=== PATIENT | male | born 1975 | race African-American/Black ===

== ENCOUNTER 2018-03-06 16:19 | Inpatient (IN) | payer OTHER ==
[2018-03-06] MEDS ORDERED: NITROGLYCERIN OINT 1 INCH/GM PACKET TOPICAL STA (16:33)
[2018-03-06] MEDS ORDERED: ASPIRIN 81 MG PO STA (16:33)
--- NOTE | 2018-03-06 16:38 | ED ---
General Adult HPI - General Chief complaint: Chest Pain Stated complaint: chest pain and rt foot pain Time Seen by Provider: 03/06/18 16:24 Source: patient, RN notes reviewed Mode of arrival: EMS Limitations: no limitations - History of Present Illness Initial comments: Patient is a pleasant 42-year-old male presenting to the emergency department with chest discomfort and right foot pain. Patient has had some tightness in his chest since around 11:00. This has been mild and persistent. Patient is slightly nauseated. Patient has been sweaty at nighttime. Patient does feel somewhat short of breath. Patient does have a history of similar symptoms previously however previous problems have been worse. Patient also has noticed a sore on his right foot. Patient states this was a blister however the blister has fallen off and revealed an ulcer. Discomfort is moderate. Patient does admit to having poorly controlled diabetes at times. - Related Data Home Medications Medication Instructions Recorded Confirmed Atorvastatin [Lipitor] 10 mg PO HS 09/24/17 03/06/18 Carvedilol [Coreg*] 12.5 mg PO BID 09/24/17 03/06/18 Ergocalciferol [Vitamin D2 50,000 unit PO Q14D 09/24/17 03/06/18 (DRISDOL)] Furosemide [Lasix] 40 mg PO DAILY 09/24/17 03/06/18 Gabapentin [Neurontin] 100 mg PO TID PRN 09/24/17 03/06/18 Insulin Detemir [Levemir Flextouch] 20 unit SQ HS 09/24/17 03/06/18 Isosorbide Dinitrate [Isordil] 20 mg PO BID 09/24/17 03/06/18 Sacubitril/Valsartan [Entresto 49 1 tab PO BID 09/24/17 03/06/18 mg-51 mg Tablet] Insulin Aspart [NovoLOG 15 unit SQ AC-TID 03/06/18 03/06/18 (formulary)] Ranitidine HCl [Zantac] 300 mg PO DAILY 03/06/18 03/06/18 Allergies Allergy/AdvReac Type Severity Reaction Status Date / Time aspirin AdvReac DIZZINESS Verified 03/06/18 17:16 Review of Systems ROS Statement: Those systems with pertinent positive or pertinent negative responses have been documented in the HPI. ROS Other: All systems not noted in ROS Statement are negative. Constitutional: Denies: fever Eyes: Denies: eye pain ENT: Denies: ear pain Respiratory: Denies: cough Cardiovascular: Reports: chest pain Endocrine: Denies: fatigue Gastrointestinal: Denies: abdominal pain Genitourinary: Denies: dysuria Musculoskeletal: Denies: back pain Skin: Reports: rash (Right foot) Neurological: Denies: weakness Past Medical History Past Medical History: Heart Failure, Diabetes Mellitus, Hyperlipidemia, Hypertension, Renal Disease Additional Past Medical History / Comment(s): neuropathy History of Any Multi-Drug Resistant Organisms: None Reported Past Surgical History: Heart Catheterization, Heart Catheterization With Stent Additional Past Surgical History / Comment(s): heart cath with stent in 2015 in [place] Past Anesthesia/Blood Transfusion Reactions: No Reported Reaction Date of Last Stent Placement:: 2014 Past Psychological History: No Psychological Hx Reported Smoking Status: Former smoker Past Alcohol Use History: Occasional Past Drug Use History: None Reported - Past Family History Mother Family Medical History: Cancer, Coronary Artery Disease (CAD), Diabetes Mellitus , Hypertension, Renal Disease Additional Family Medical History / Comment(s): breast CA General Exam Limitations: no limitations General appearance: alert, in no apparent distress Head exam: Present: atraumatic Eye exam: Present: normal appearance, PERRL ENT exam: Present: normal oropharynx Neck exam: Present: normal inspection Respiratory exam: Present: normal lung sounds bilaterally. Absent: chest wall tenderness Cardiovascular Exam: Present: regular rate, normal rhythm Expanded Peripheral pulses: 2+: Radial (R), Radial (L), Dorsalis Pedis (R), Dorsalis Pedis (L) GI/Abdominal exam: Present: soft. Absent: tenderness Extremities exam: Present: pedal edema, other (Right distal lateral foot ulcer approximate 4 x 5 cm, stage II.). Absent: calf tenderness Neurological exam: Present: alert Psychiatric exam: Present: normal affect, normal mood Skin exam: Present: other (Right foot ulcer) Course Vital Signs 03/06/18 16:21 Temperature 97.8 F Pulse Rate 78 Respiratory 18 Rate Blood Pressure 140/79 O2 Sat by Pulse 99 Oximetry EKG Findings - EKG Comments: EKG Findings:: Normal sinus rhythm 76. DE 164. QRS 106. QT 418. QTC 470. Left axis. LVH. T-wave inversion leads V2 through V6. Medical Decision Making - Medical Decision Making Patient reevaluated and resting comfortably in bed. Patient does have elevated troponin however also has elevated creatinine. Patient will be treated for non- ST elevation IN. Heparin will be started and cardiology will be consult. Patient will also need nephrology consult. Case was discussed in detail with practitioner Lorna ramos, who will admit for Dr. Hamilton, who admits for Dr. Serafin Martel. - Lab Data Result diagrams: 03/06/18 16:36 03/06/18 16:36 Lab Results 03/06/18 03/06/18 03/06/18 Range/Units 16:36 16:36 16:36 WBC 7.6 (3.8-10.6) k/uL RBC 3.16 L (4.30-5.90) m/uL Hgb 8.5 L (13.0-17.5) gm/dL Hct 27.1 L (39.0-53.0) % MCV 85.9 (80.0-100.0) fL MCH 26.8 (25.0-35.0) pg MCHC 31.2 (31.0-37.0) g/dL RDW 14.5 (11.5-15.5) % Plt Count 257 (150-450) k/uL Neutrophils % 73 % Lymphocytes % 16 % Monocytes % 6 % Eosinophils % 3 % Basophils % 0 % Neutrophils # 5.5 (1.3-7.7) k/uL Lymphocytes # 1.2 (1.0-4.8) k/uL Monocytes # 0.5 (0-1.0) k/uL Eosinophils # 0.2 (0-0.7) k/uL Basophils # 0.0 (0-0.2) k/uL Hypochromasia Moderate PT (9.0-12.0) sec INR (<1.2) APTT (22.0-30.0) sec Sodium 143 (137-145) mmol/L Potassium 4.0 (3.5-5.1) mmol/L Chloride 104 (98-107) mmol/L Carbon Dioxide 27 (22-30) mmol/L Anion Gap 12 mmol/L BUN 46 H (9-20) mg/dL Creatinine 5.03 H* (0.66-1.25) mg/dL Est GFR (CKD-EPI)AfAm 15 (>60 ml/min/1.73 sqM) Est GFR (CKD-EPI)NonAf 13 (>60 ml/min/1.73 sqM) Glucose 51 L (74-99) mg/dL Calcium 7.9 L (8.4-10.2) mg/dL Magnesium 1.7 (1.6-2.3) mg/dL Total Bilirubin 0.5 (0.2-1.3) mg/dL AST 21 (17-59) U/L ALT 24 (21-72) U/L Alkaline Phosphatase 89 (38-126) U/L Total Creatine Kinase 748 H (55-170) U/L CK-MB (CK-2) 7.2 H* (0.0-2.4) ng/mL CK-MB (CK-2) Rel Index 1.0 Troponin I 0.156 H* (0.000-0.034) ng/mL NT-Pro-B Natriuret Pep pg/mL Total Protein 6.6 (6.3-8.2) g/dL Albumin 3.0 L (3.5-5.0) g/dL 03/06/18 03/06/18 Range/Units 16:36 16:36 WBC (3.8-10.6) k/uL RBC (4.30-5.90) m/uL Hgb (13.0-17.5) gm/dL Hct (39.0-53.0) % MCV (80.0-100.0) fL MCH (25.0-35.0) pg MCHC (31.0-37.0) g/dL RDW (11.5-15.5) % Plt Count (150-450) k/uL Neutrophils % % Lymphocytes % % Monocytes % % Eosinophils % % Basophils % % Neutrophils # (1.3-7.7) k/uL Lymphocytes # (1.0-4.8) k/uL Monocytes # (0-1.0) k/uL Eosinophils # (0-0.7) k/uL Basophils # (0-0.2) k/uL Hypochromasia PT 10.4 (9.0-12.0) sec INR 1.1 (<1.2) APTT 23.7 (22.0-30.0) sec Sodium (137-145) mmol/L Potassium (3.5-5.1) mmol/L Chloride (98-107) mmol/L Carbon Dioxide (22-30) mmol/L Anion Gap mmol/L BUN (9-20) mg/dL Creatinine (0.66-1.25) mg/dL Est GFR (CKD-EPI)AfAm (>60 ml/min/1.73 sqM) Est GFR (CKD-EPI)NonAf (>60 ml/min/1.73 sqM) Glucose (74-99) mg/dL Calcium (8.4-10.2) mg/dL Magnesium (1.6-2.3) mg/dL Total Bilirubin (0.2-1.3) mg/dL AST (17-59) U/L ALT (21-72) U/L Alkaline Phosphatase (38-126) U/L Total Creatine Kinase (55-170) U/L CK-MB (CK-2) (0.0-2.4) ng/mL CK-MB (CK-2) Rel Index Troponin I (0.000-0.034) ng/mL NT-Pro-B Natriuret Pep 9710 pg/mL Total Protein (6.3-8.2) g/dL Albumin (3.5-5.0) g/dL - Radiology Data Radiology results: image reviewed (Chest x-ray does show cardiomegaly with some central vascular congestion.) Critical Care Time Critical Care Time: Yes Total Critical Care Time: 32 Disposition Clinical Impression: NSTEMI (non-ST elevated myocardial infarction), CKD (chronic kidney disease), CHF (congestive heart failure) Disposition: ADMITTED IP TO THIS HOSP Condition: Serious Is patient prescribed a controlled substance at d/c from ED?: No Referrals: Judith Rico MD [Primary Care Provider] - 1-2 days Decision Time: 18:17
[2018-03-06 16:57] LABS: Basophils % (A) 0 %; Eosinophils # (A) 0.2 k/uL (0-0.7); Eosinophils % (A) 3 %; HCT 27.1 % (39.0-53.0); HGB 8.5 gm/dL (13.0-17.5); Hypochromasia Moderate; Lymphocytes # (A) 1.2 k/uL (1.0-4.8); Lymphocytes % (A) 16 %; MCH 26.8 pg (25.0-35.0); MCHC 31.2 g/dL (31.0-37.0); MCV 85.9 fL (80.0-100.0); Mean Platelet Volume 7.3; Monocytes # (A) 0.5 k/uL (0-1.0); Monocytes % (A) 6 %; Neutrophils # (A) 5.5 k/uL (1.3-7.7); Neutrophils % (A) 73 %; Platelet Count 257 k/uL (150-450); RBC 3.16 m/uL (4.30-5.90); RDW 14.5 % (11.5-15.5); WBC 7.6 k/uL (3.8-10.6)
[2018-03-06 17:02] LABS: INR 1.1 (<1.2); Partial Thromboplastin Time 23.7 sec (22.0-30.0); Prothrombin Time 10.4 sec (9.0-12.0)
[2018-03-06 17:04] LABS: Calcium 7.9 mg/dL (8.4-10.2); Magnesium 1.7 mg/dL (1.6-2.3); Total Bilirubin 0.5 mg/dL (0.2-1.3); Total Protein 6.6 g/dL (6.3-8.2)
--- NOTE | 2018-03-06 17:05 | XR ---
EXAMINATION TYPE: XR chest 2V DATE OF EXAM: 03/06/2018 COMPARISON: Chest x-ray September 28, 2017 HISTORY: Chest pain, history of CHF. TECHNIQUE: Frontal and lateral views of the chest are obtained. FINDINGS: Exam is suboptimal secondary to patient's large body habitus. Low lung volumes and cardiom egaly with perhaps mild central vascular congestion is redemonstrated. There is no suspicious new fo daisy airspace opacity, pleural effusion, or pneumothorax seen bilaterally. The osseous structures are intact. IMPRESSION: Correlate for CHF exacerbation as there is cardiomegaly with possible central vascular c ongestion redemonstrated.
--- NOTE | 2018-03-06 17:06 | XR ---
EXAMINATION TYPE: XR foot complete RT DATE OF EXAM: 03/06/2018 CLINICAL HISTORY: Nonhealing wound right fifth digit. TECHNIQUE: Frontal, lateral, and oblique images of the right foot are obtained. COMPARISON: None FINDINGS: There is no acute fracture/dislocation evident in the right foot. The joint spaces in the right foot appear within normal limits. Some flexion in distal third through fifth toes is present. No suspicious cortical destruction or periosteal reaction is seen. Seen best on lateral view there is moderate soft tissue swelling along dorsal surface at level of metatarsals. IMPRESSION: Soft tissue swelling without convincing radiographic evidence for acute osteomyelitis. If Clinical concern persists further investigation three-phase bone scan or MRI may be warranted.
[2018-03-06 17:33] LABS: Creatine Kinase MB 7.2 ng/mL (0.0-2.4); Troponin I 0.156 ng/mL (0.000-0.034)
[2018-03-06] MEDS ORDERED: NITROGLYCERIN SL TABS 0.4 MG TAB SUBLINGUAL PRN (18:18)
[2018-03-06] MEDS ORDERED: HEPARIN SODIUM,PORCINE 5,000 UNIT/ML 1 ML VIAL IV ONE (18:18)
[2018-03-06] MEDS ORDERED: FUROSEMIDE 10 MG/ML 4 ML VIAL IV SCH (18:45)
[2018-03-06] MEDS: HEPARIN SODIUM,PORCINE/D5W PMX 25,000 UNIT in DEXTROSE/WATER 1 500ML.BAG IV SCH (18:58)
[2018-03-06 19:59] LABS: Glucose,Whole Blood 184 mg/dL (75-99)
[2018-03-06] MEDS: ATORVASTATIN 10 MG TAB PO SCH (20:04)
[2018-03-06] MEDS: CARVEDILOL 12.5 MG TAB PO SCH (20:04)
[2018-03-06] MEDS: INSULIN ASPART 100 UNIT/ML 1 ML 10 ML VIAL SQ SCH (21:06)
[2018-03-06 21:45] LABS: Troponin I 0.178 ng/mL (0.000-0.034)
[2018-03-06] MEDS ORDERED: GABAPENTIN 100 MG CAP PO PRN (22:02)
[2018-03-06] MEDS ORDERED: ERGOCALCIFEROL 50,000 UNIT CAP PO SCH (23:00)
[2018-03-06] MEDS: NITROGLYCERIN OINT 1 INCH/GM PACKET TOPICAL SCH (23:14)
[2018-03-07 03:46] LABS: Hemoglobin A1C 14.2 % (4.0-6.0)
[2018-03-07] MEDS ORDERED: FUROSEMIDE 10 MG/ML 4 ML VIAL IV SCH (04:00)
[2018-03-07 04:37] LABS: Mean Platelet Volume 8.7; Platelet Count 188 k/uL (150-450)
[2018-03-07 05:12] LABS: Cholesterol 134 mg/dL (<200); HDL Cholesterol 38 mg/dL (40-60); LDL Cholesterol,Calculated 65 mg/dL (0-99); Triglycerides 156 mg/dL (<150)
[2018-03-07 05:57] LABS: Creatine Kinase MB 6.9 ng/mL (0.0-2.4)
[2018-03-07 05:58] LABS: Troponin I 0.18 ng/mL (0.000-0.034)
[2018-03-07 06:06] LABS: Glucose,Whole Blood 193 mg/dL (75-99)
[2018-03-07] MEDS: NITROGLYCERIN OINT 1 INCH/GM PACKET TOPICAL SCH (06:33)
[2018-03-07] MEDS: CARVEDILOL 12.5 MG TAB PO SCH ×2 (06:33→16:37)
[2018-03-07] MEDS: INSULIN ASPART 100 UNIT/ML 1 ML 10 ML VIAL SQ SCH ×7 (06:33→23:13)
--- NOTE | 2018-03-07 08:16 | P.CRDCN ---
History of Present Illness Consult date: 03/07/18 Requesting physician: Cooper Jeff Consult reason: congestive heart failure Chief complaint: Shortness of breath, bilateral peripheral edema and foot ulcer History of present illness: This is a pleasant 42-year-old gentleman with history of hypertension, diabetes, hyperlipidemia, stage IV renal failure, nonsmoker, dilated cardiomyopathy, cardiac catheterization in 2014 was performed which did not reveal any significant coronary artery disease, he presented to the hospital on this occasion with symptoms of progressively worsening shortness of breath, with associated chest pressure and heaviness, positive PND and orthopnea , positive peripheral edema, and an ulcer on his right foot which he states he' s been self treating at home. Patient also states that for the past one week he has not been putting out as much urine as usual. Chest x-ray on admission revealed CHF. Foot x-ray showed soft tissue swelling without convincing radiographic evidence of acute osteomyelitis, this was the right foot. EKG shows normal sinus rhythm with T wave inversion noted in the anterior lateral leads, similar to prior EKGs. The pressure on admission 140/80, heart rate in the 70s, 99% on room air. Blood pressure this morning 144/70 with a heart rate in the 60s, 96% on room air. White blood cell count 7.6, hemoglobin 8.5, most recent available hemoglobin in September 2017 was 11.9, platelet count 188, sodium 143, potassium 4.0, BUN 46, creatinine 5.0. Creatinine in September 2017 2.81. Troponins 0.15, 0.17, 0.18. He was noted to have abnormality in his troponin in September as well. BNP level 9710. Patient was initiated on IV Lasix in the emergency room, he has been putting out good urine since his arrival here, his weight is down from admission. At the time of my examination this morning, he continues to feel short of breath, continues to have 3+ bilateral peripheral edema. Denies any chest discomfort. Denies having any black stool or blood in his stool. Past Medical History Past Medical History: Heart Failure, Diabetes Mellitus, Hyperlipidemia, Hypertension, Renal Disease, Syncope Additional Past Medical History / Comment(s): neuropathy, "blister rt foot" History of Any Multi-Drug Resistant Organisms: None Reported Past Surgical History: Heart Catheterization, Heart Catheterization With Stent Additional Past Surgical History / Comment(s): heart cath with stent in 2014 in [place] Past Anesthesia/Blood Transfusion Reactions: No Reported Reaction Date of Last Stent Placement:: 2014 Smoking Status: Former smoker - Past Family History Mother Family Medical History: Cancer, Coronary Artery Disease (CAD), Diabetes Mellitus , Hypertension, Renal Disease Additional Family Medical History / Comment(s): breast CA Father History Unknown: Yes Medications and Allergies Home Medications Medication Instructions Recorded Confirmed Type Atorvastatin [Lipitor] 10 mg PO HS 09/24/17 03/06/18 History Carvedilol [Coreg*] 12.5 mg PO BID 09/24/17 03/06/18 History Ergocalciferol [Vitamin D2 50,000 unit PO Q14D 09/24/17 03/06/18 History (DRISDOL)] Furosemide [Lasix] 40 mg PO DAILY 09/24/17 03/06/18 History Gabapentin [Neurontin] 100 mg PO TID PRN 09/24/17 03/06/18 History Insulin Detemir [Levemir Flextouch] 20 unit SQ HS 09/24/17 03/06/18 History Isosorbide Dinitrate [Isordil] 20 mg PO BID 09/24/17 03/06/18 History Sacubitril/Valsartan [Entresto 49 1 tab PO BID 09/24/17 03/06/18 History mg-51 mg Tablet] Insulin Aspart [NovoLOG 15 unit SQ AC-TID 03/06/18 03/06/18 History (formulary)] Ranitidine HCl [Zantac] 300 mg PO DAILY 03/06/18 03/06/18 History Allergies Allergy/AdvReac Type Severity Reaction Status Date / Time aspirin AdvReac DIZZINESS Verified 03/06/18 17:16 Physical Exam Vitals: Vital Signs Temp Pulse Pulse Pulse Resp BP BP 03/07/18 07:25 78 60 03/07/18 03:56 97.3 F L 60 16 144/76 03/06/18 23:31 96.9 F L 90 20 160/111 03/06/18 20:15 97.0 F L 85 19 149/101 03/06/18 19:27 97.5 F L 81 16 159/85 03/06/18 19:01 97.1 F L 03/06/18 18:49 73 17 146/97 03/06/18 17:30 86 16 168/89 03/06/18 16:23 78 18 03/06/18 16:21 97.8 F 78 18 140/79 Pulse Ox 03/07/18 07:25 03/07/18 03:56 96 03/06/18 23:31 95 03/06/18 20:15 99 03/06/18 19:27 98 03/06/18 19:01 03/06/18 18:49 98 03/06/18 17:30 98 03/06/18 16:23 03/06/18 16:21 99 Intake and Output 03/06/18 03/07/18 03/07/18 22:59 06:59 14:59 Intake Total 175.333 Output Total 600 1050 Balance -600 -874.667 Intake: Intake, IV Titration 175.333 Amount Heparin Sodium,Porcine/ 175.333 D5w Pmx 25,000 unit In Dextrose/Water 1 500ml. bag @ 7.3001 UNITS/KG/HR 20 mls/hr IV .Q24H [facility] Rx #:[id number] Output: Urine 600 1050 Other: Voiding Method Urinal Urinal # Voids 1 Weight 136.985 kg 133.5 kg PHYSICAL EXAMINATION: HEENT: Head is atraumatic, normocephalic. Pupils equal, round. Neck is supple. There is elevated jugular venous pressure. HEART EXAMINATION: Heart S1 and S2 systolic murmur is heard. CHEST EXAMINATION: Lungs reveal diminished air entry to bilateral bases. ABDOMEN: Soft, obese, nontender. Bowel sounds are heard. No organomegaly noted. EXTREMITIES:[ 2+ peripheral pulses with 3+ evidence of peripheral edema . NEUROLOGIC patient is awake, alert and oriented -3. . Results 03/07/18 04:11 03/06/18 16:36 Cardiac Enzymes 03/06/18 03/06/18 03/06/18 Range/Units 16:36 16:36 20:33 AST 21 (17-59) U/L CK-MB (CK-2) 7.2 H* 8.0 H* (0.0-2.4) ng/mL Troponin I 0.156 H* 0.178 H* (0.000-0.034) ng/mL 03/07/18 Range/Units 04:11 AST (17-59) U/L CK-MB (CK-2) 6.9 H* (0.0-2.4) ng/mL Troponin I 0.180 H* (0.000-0.034) ng/mL Coagulation 03/06/18 03/07/18 Range/Units 16:36 00:51 PT 10.4 (9.0-12.0) sec APTT 23.7 28.3 (22.0-30.0) sec Lipids 03/07/18 Range/Units 04:11 Triglycerides 156 H (<150) mg/dL Cholesterol 134 (<200) mg/dL HDL Cholesterol 38 L (40-60) mg/dL CBC 03/06/18 03/07/18 Range/Units 16:36 04:11 WBC 7.6 (3.8-10.6) k/uL RBC 3.16 L (4.30-5.90) m/uL Hgb 8.5 L (13.0-17.5) gm/dL Hct 27.1 L (39.0-53.0) % Plt Count 257 188 (150-450) k/uL Comprehensive Metabolic Panel 03/06/18 Range/Units 16:36 Sodium 143 (137-145) mmol/L Potassium 4.0 (3.5-5.1) mmol/L Chloride 104 (98-107) mmol/L Carbon Dioxide 27 (22-30) mmol/L BUN 46 H (9-20) mg/dL Creatinine 5.03 H* (0.66-1.25) mg/dL Glucose 51 L (74-99) mg/dL Calcium 7.9 L (8.4-10.2) mg/dL AST 21 (17-59) U/L ALT 24 (21-72) U/L Alkaline Phosphatase 89 (38-126) U/L Total Protein 6.6 (6.3-8.2) g/dL Albumin 3.0 L (3.5-5.0) g/dL Current Medications Generic Name Dose Route Start Last Admin Trade Name Freq PRN Reason Stop Dose Admin Aspirin 325 mg 03/07/18 09:00 Aspirin PO DAILY RICK Atorvastatin Calcium 10 mg 03/06/18 21:00 03/06/18 20:04 Lipitor PO 10 mg HS RICK Administration Carvedilol 12.5 mg 03/06/18 19:00 03/07/18 06:33 Coreg PO 12.5 mg BID-W/MEALS [facility] Administration Famotidine 40 mg 03/07/18 09:00 Pepcid PO DAILY [facility] Furosemide 40 mg 03/07/18 04:00 03/07/18 03:47 Lasix IV 40 mg Q8H RICK Administration Gabapentin 100 mg 03/06/18 22:02 Neurontin PO TID PRN Nerve Pain Heparin Sodium (Porcine) 0 unit 03/06/18 18:18 Heparin IV Q6HR PRN Low PTT Protocol Heparin Sodium/Dextrose 25,000 500 mls @ 20 mls/hr 03/06/18 18:30 03/07/18 03 :44 unit/ IV Solution IV 10.3 units/kg/hr .Q24H RICK 28.21 mls/hr Protocol Titration 7.3001 UNITS/KG/HR Insulin Aspart 0 unit 03/06/18 21:00 03/07/18 06:33 Novolog SQ 2 unit ACHS [facility] Administration Protocol Insulin Aspart 15 unit 03/07/18 07:30 03/07/18 07:32 Novolog SQ Not Given AC-TID [facility] Insulin Detemir 20 unit 03/07/18 21:00 Levemir SQ HS [facility] Isosorbide Dinitrate 20 mg 03/07/18 09:00 Isordil PO BID [facility] Nitroglycerin 1 inch 03/07/18 00:00 03/07/18 06:33 Nitro-Bid Oint TOPICAL 1 inch Q6HR [facility] Administration Nitroglycerin 0.4 mg 03/06/18 18:18 Nitrostat SUBLINGUAL Q5M PRN Chest Pain Sacubitril/Valsartan 1 each 03/07/18 09:00 Entresto 49 Mg-51 Mg Tablet PO BID [facility] Intake and Output 03/06/18 03/07/18 03/07/18 22:59 06:59 14:59 Intake Total 175.333 Output Total 600 1050 Balance -600 -874.667 Intake: Intake, IV Titration 175.333 Amount Heparin Sodium,Porcine/ 175.333 D5w Pmx 25,000 unit In Dextrose/Water 1 500ml. bag @ 7.3001 UNITS/KG/HR 20 mls/hr IV .Q24H [facility] Rx #:[id number] Output: Urine 600 1050 Other: Voiding Method Urinal Urinal # Voids 1 Weight 136.985 kg 133.5 kg 03/07/18 04:11 03/06/18 16:36 EKG Interpretations (text) EKG shows a normal sinus rhythm with T-wave inversion in the anterior leads Assessment and Plan Plan: Assessment and plan #1 congestive heart failure, LV function unknown #2 hypertension #3 diabetes #4 stage IV renal failure #5 anemia #6 abnormal troponins, not consistent with acute coronary syndrome, likely secondary to abnormal renal function. Patient did have cardiac catheterization in 2014 which revealed normal coronary arteries. #7 prior history of smoking Plan We will discontinue the IV push Lasix and start the patient on a Lasix drip. Monitor intake and output and daily weights closely. Continue Coreg and interest oh, discontinue Nitropaste. We will also obtain an echocardiogram with Doppler study and progress note from the office. Further recommendations will be based on these findings and patient's clinical course. DNP note has been reviewed, I agree with a documented findings and plan of care. Patient was seen and examined.
[2018-03-07] MEDS: SACUBITRIL/VALSARTAN 49 MG-51 MG TABLET PO SCH ×2 (08:21→23:13)
[2018-03-07] MEDS: FAMOTIDINE 20 MG TAB PO SCH (08:21)
[2018-03-07] MEDS: ISOSORBIDE DINITRATE 20 MG TAB PO SCH ×2 (08:22→23:13)
[2018-03-07] MEDS: ASPIRIN 81 MG PO SCH (08:24)
--- NOTE | 2018-03-07 08:48 | P.NPCON ---
History of Present Illness - Reason for Consult acute renal failure, chronic renal failure - History of Present Illness Reason for consultation: Acute kidney injury on chronic kidney disease History of present illness: Patient is a 42-year-old male seen in renal consultation for acute kidney injury on chronic kidney disease. Patient has chronic kidney disease stage III with creatinine in the range of 2.8-3.5 recently. Etiology is diabetic kidney disease and nephrosclerosis. Patient presented to the hospital with left-sided chest discomfort which he attributes to excess fluid around his lungs. Patient states he has history of congestive heart failure and has gained about 35 pounds in the last 2-3 months. He admits that his urine output was less than usual the last few days. He was receiving IV Lasix bolus and is now on a Lasix drip at 10 mL an hour. Urine output is improved. No hematuria or dysuria. No vomiting or diarrhea. Chest discomfort has improved. He was also being treated for a right foot ulcer for which he was evaluated as an outpatient and due to drainage he was sent to the hospital for further care. He does have quite a bit of edema. Hemodynamically he is stable. He has a long-standing history of diabetes - states he was diagnosed at the age of 21. Vital signs are stable. General: The patient appeared well nourished and normally developed. HEENT: Head exam is unremarkable. Neck is without jugular venous distension. LUNGS: Lungs are clear to auscultation and percussion. Breath sounds decreased. HEART: Rate and Rhythm are regular. First and second heart sounds normal. No murmurs, rubs or gallops. ABDOMEN: Abdominal exam reveals normal bowel sounds. Non-tender and non- distended. No evidence of peritonitis. EXTREMITITES: 2+ edema. No obvious drainage noted from the foot. Past Medical History Past Medical History: Heart Failure, Diabetes Mellitus, Hyperlipidemia, Hypertension, Renal Disease, Syncope Additional Past Medical History / Comment(s): neuropathy, "blister rt foot" History of Any Multi-Drug Resistant Organisms: None Reported Past Surgical History: Heart Catheterization, Heart Catheterization With Stent Additional Past Surgical History / Comment(s): heart cath with stent in 2015 in [place] Past Anesthesia/Blood Transfusion Reactions: No Reported Reaction Date of Last Stent Placement:: 2014 Smoking Status: Former smoker - Past Family History Mother Family Medical History: Cancer, Coronary Artery Disease (CAD), Diabetes Mellitus , Hypertension, Renal Disease Additional Family Medical History / Comment(s): breast CA Father History Unknown: Yes Medications and Allergies Home Medications Medication Instructions Recorded Confirmed Type Atorvastatin [Lipitor] 10 mg PO HS 09/24/17 03/06/18 History Carvedilol [Coreg*] 12.5 mg PO BID 09/24/17 03/06/18 History Ergocalciferol [Vitamin D2 50,000 unit PO Q14D 09/24/17 03/06/18 History (DRISDOL)] Furosemide [Lasix] 40 mg PO DAILY 09/24/17 03/06/18 History Gabapentin [Neurontin] 100 mg PO TID PRN 09/24/17 03/06/18 History Insulin Detemir [Levemir Flextouch] 20 unit SQ HS 09/24/17 03/06/18 History Isosorbide Dinitrate [Isordil] 20 mg PO BID 09/24/17 03/06/18 History Sacubitril/Valsartan [Entresto 49 1 tab PO BID 09/24/17 03/06/18 History mg-51 mg Tablet] Insulin Aspart [NovoLOG 15 unit SQ AC-TID 03/06/18 03/06/18 History (formulary)] Ranitidine HCl [Zantac] 300 mg PO DAILY 03/06/18 03/06/18 History Allergies Allergy/AdvReac Type Severity Reaction Status Date / Time aspirin AdvReac DIZZINESS Verified 03/06/18 17:16 Physical Exam Vitals: Vital Signs Temp Pulse Pulse Pulse Resp BP BP 03/07/18 07:25 78 60 03/07/18 03:56 97.3 F L 60 16 144/76 03/06/18 23:31 96.9 F L 90 20 160/111 03/06/18 20:15 97.0 F L 85 19 149/101 03/06/18 19:27 97.5 F L 81 16 159/85 03/06/18 19:01 97.1 F L 03/06/18 18:49 73 17 146/97 03/06/18 17:30 86 16 168/89 03/06/18 16:23 78 18 03/06/18 16:21 97.8 F 78 18 140/79 Pulse Ox 03/07/18 07:25 03/07/18 03:56 96 05/15/18 23:31 95 03/06/18 20:15 99 03/06/18 19:27 98 03/06/18 19:01 03/06/18 18:49 98 03/06/18 17:30 98 03/06/18 16:23 03/06/18 16:21 99 Intake and Output 03/06/18 03/07/18 03/07/18 22:59 06:59 14:59 Intake Total 175.333 Output Total 600 1050 Balance -600 -874.667 Intake: Intake, IV Titration 175.333 Amount Heparin Sodium,Porcine/ 175.333 D5w Pmx 25,000 unit In Dextrose/Water 1 500ml. bag @ 7.3001 UNITS/KG/HR 20 mls/hr IV .Q[facility]H [facility] Rx #:[id number] Output: Urine 600 1050 Other: Voiding Method Urinal Urinal # Voids 1 Weight 136.985 kg 133.5 kg Results - Lab Results Most recent lab results Calcium 7.9 mg/dL (8.4-10.2) L 03/06/18 16:36 Magnesium 1.7 mg/dL (1.6-2.3) 03/06/18 16:36 03/07/18 04:11 03/06/18 16:36 Assessment and Plan Plan: Assessment: 1. Nonoliguric acute kidney injury secondary to ATN secondary to cardiorenal syndrome. Creatinine 5.03 on admission. Labs from today pending at this time. Rule out obstructive uropathy. 2. Chronic kidney disease stage III with creatinine in the range of 2.83.5 recently. Etiology is diabetic kidney disease and nephrosclerosis. 3. CHF exacerbation. Unknown ejection fraction. 4. Volume overload. 5. Right foot ulcer maintain on antibiotics. 6. Anemia. Rule out iron deficiency. 7. Hypertension with chronic kidney disease. Partially volume sensitive. Plan: Continue Lasix drip at 10 mL an hour. Add metolazone 5 mg once daily. Check urinalysis. Check renal ultrasound. Check iron studies. Low-salt diet and 1.5 L fluid restriction once on oral diet. Avoid nephrotoxic agents and hypotensive episodes. Strict I's and O's. Repeat electrolytes in the morning. Thank you for the consultation. I will continue to follow the patient with you during his hospital stay.
[2018-03-07] MEDS: FUROSEMIDE 250 MG in SODIUM CHLORIDE 0.9% 225 ML IVP SCH (08:53)
[2018-03-07] MEDS: METOLAZONE 5 MG TAB PO SCH (08:53)
[2018-03-07] MEDS ORDERED: ASPIRIN 325 MG TAB PO SCH (09:00)
[2018-03-07 09:01] LABS: Calcium 7.6 mg/dL (8.4-10.2); Potassium 3.8 mmol/L (3.5-5.1)
--- NOTE | 2018-03-07 10:47 | US ---
EXAMINATION TYPE: US kidneys/renal and bladder DATE OF EXAM: 03/07/2018 COMPARISON: NONE CLINICAL HISTORY: 42-year-old male with acute kidney injury. Leg swelling per pt TECHNIQUE: Multiple sonographic images of the kidneys and bladder are obtained. FINDINGS: EXAM MEASUREMENTS: Right Kidney: 11.7 x 5.7 x 5.0 cm Left Kidney: 11.6 x 5.2 x 4.6 cm Post Void Residual Volume: Bladder insufficiently full to evaluate mL Right Kidney: No hydronephrosis. Left Kidney: No hydronephrosis. Bladder: Bladder insufficiently full to evaluate Bilateral Jets seen: Bladder insufficiently full to evaluate Normal Post Void Residual: Bladder insufficiently full to evaluate IMPRESSION: No hydronephrosis. Nondistention of the bladder limits its evaluation.
[2018-03-07] MEDS: HEPARIN SODIUM,PORCINE/D5W PMX 25,000 UNIT in DEXTROSE/WATER 1 500ML.BAG IV SCH ×2 (10:48→16:43)
[2018-03-07] MEDS: HEPARIN SODIUM,PORCINE 5,000 UNIT/ML 1 ML VIAL IV PRN ×2 (10:50→16:45)
[2018-03-07 11:23] LABS: Glucose,Whole Blood 312 mg/dL (75-99)
--- NOTE | 2018-03-07 12:07 | P.HPIM ---
History of Present Illness 42-year-old man came in with the complaints of ulceration the right foot patient is diabetic patient has bilateral pedal edema leading to a bullous lesion rupturing and a stage II ulceration center of which does appear to be greenish in color surrounding ulcer is pinkish in color. Patient is complaining of short of breath as well which has been going on for Percocet 2-3 days with increasing swelling of bilateral lower limbs and the decreased urination. Patient did not give me a clear history of orthopnea but did give a clear history of paroxysmal nocturnal dyspnea patient is found to be in congestive heart failure exacerbation with pulmonary edema along with the elevated BNP patient is admitted for IV Lasix patient baseline creatinine is around 2.5-3.5 now has gone up to 5 patient is being treated for cardiorenal syndrome patient is on IV Lasix drip at this time patient was evaluated by cardiology and nephrology. Patient to urine output has increased. Patient appears to have had systolic dysfunction nonischemic cardiomyopathy. Patient with sugars are high today because she didn't reveal receive his Lantus last night. She also complaining of mild chest pressure like sensation patient does have minimally elevated troponins probably secondary to chronic kidney disease and the patient was started on IV heparin which is being continued. Review of Systems REVIEW OF SYSTEMS: CONSTITUTIONAL: No fever, no malaise, no fatigue. HEENT: No recent visual problems or hearing problems. Denied any sore throat. CARDIOVASCULAR: no palpitations, no syncope. PULMONARY: no cough, no hemoptysis. GASTROINTESTINAL: No diarrhea, no nausea, no vomiting, no abdominal pain. Normoactive bowel sounds. NEUROLOGICAL: No headaches, no weakness, no numbness. HEMATOLOGICAL: Denies any bleeding or petechiae. GENITOURINARY: Denies any burning micturition, frequency, or urgency. MUSCULOSKELETAL/RHEUMATOLOGICAL: Denies any joint pain, swelling, or any muscle pain. ENDOCRINE: Denies any polyuria or polydipsia. The rest of the 14-point review of systems is negative. Past Medical History Past Medical History: Heart Failure, Diabetes Mellitus, Hyperlipidemia, Hypertension, Renal Disease, Syncope Additional Past Medical History / Comment(s): neuropathy, "blister rt foot" History of Any Multi-Drug Resistant Organisms: None Reported Past Surgical History: Heart Catheterization, Heart Catheterization With Stent Additional Past Surgical History / Comment(s): heart cath with stent in 2014 in [place] Past Anesthesia/Blood Transfusion Reactions: No Reported Reaction Date of Last Stent Placement:: 2014 Smoking Status: Former smoker - Past Family History Mother Family Medical History: Cancer, Coronary Artery Disease (CAD), Diabetes Mellitus , Hypertension, Renal Disease Additional Family Medical History / Comment(s): breast CA Father History Unknown: Yes Medications and Allergies Home Medications Medication Instructions Recorded Confirmed Type Atorvastatin [Lipitor] 10 mg PO HS 09/24/17 03/06/18 History Carvedilol [Coreg*] 12.5 mg PO BID 09/24/17 03/06/18 History Ergocalciferol [Vitamin D2 50,000 unit PO Q14D 09/24/17 03/06/18 History (DRISDOL)] Furosemide [Lasix] 40 mg PO DAILY 09/24/17 03/06/18 History Gabapentin [Neurontin] 100 mg PO TID PRN 09/24/17 03/06/18 History Insulin Detemir [Levemir Flextouch] 20 unit SQ HS 09/24/17 03/06/18 History Isosorbide Dinitrate [Isordil] 20 mg PO BID 09/24/17 03/06/18 History Sacubitril/Valsartan [Entresto 49 1 tab PO BID 09/24/17 03/06/18 History mg-51 mg Tablet] Insulin Aspart [NovoLOG 15 unit SQ AC-TID 03/06/18 03/06/18 History (formulary)] Ranitidine HCl [Zantac] 300 mg PO DAILY 03/06/18 03/06/18 History Allergies Allergy/AdvReac Type Severity Reaction Status Date / Time aspirin AdvReac DIZZINESS Verified 03/06/18 17:16 Physical Exam Vitals: Vital Signs Temp Pulse Pulse Pulse Resp BP BP 03/07/18 11:54 97.8 F 82 18 135/72 03/07/18 11:53 78 86 03/07/18 08:00 97.7 F 86 18 128/85 03/07/18 07:25 78 60 03/07/18 03:56 97.3 F L 60 16 144/76 03/06/18 23:31 96.9 F L 90 20 160/111 03/06/18 20:15 97.0 F L 85 19 149/101 03/06/18 19:27 97.5 F L 81 16 159/85 03/06/18 19:01 97.1 F L 03/06/18 18:49 73 17 146/97 03/06/18 17:30 86 16 168/89 03/06/18 16:23 78 18 03/06/18 16:21 97.8 F 78 18 140/79 Pulse Ox 03/07/18 11:54 98 03/07/18 11:53 03/07/18 08:00 100 03/07/18 07:25 03/07/18 03:56 96 03/06/18 23:31 95 03/06/18 20:15 99 03/06/18 19:27 98 03/06/18 19:01 03/06/18 18:49 98 03/06/18 17:30 98 03/06/18 16:23 03/06/18 16:21 99 Intake and Output 03/06/18 03/07/18 03/07/18 22:59 06:59 14:59 Intake Total 175.333 199.351 Output Total 600 1050 Balance -600 -874.667 199.351 Intake: Intake, IV Titration 175.333 199.351 Amount Heparin Sodium,Porcine/ 175.333 199.351 D5w Pmx 25,000 unit In Dextrose/Water 1 500ml. bag @ 7.3001 UNITS/KG/HR 20 mls/hr IV .Q24H [facility] Rx #:[id number] Output: Urine 600 1050 Other: Voiding Method Urinal Urinal # Voids 1 Weight 136.985 kg 133.5 kg PHYSICAL EXAMINATION: GENERAL: The patient is alert and oriented x3, not in any acute distress. Morbidly obese HEENT: Pupils are round and equally reacting to light. EOMI. No scleral icterus. No conjunctival pallor. Normocephalic, atraumatic. No pharyngeal erythema. No thyromegaly. CARDIOVASCULAR: S1 and S2 present. No murmurs, rubs, or gallops. Patient has elevated JVD does have S3 PULMONARY: Chest is clear to auscultation, no wheezing or crackles. ABDOMEN: Soft, nontender, nondistended, normoactive bowel sounds. No palpable organomegaly. MUSCULOSKELETAL: No joint swelling or deformity. EXTREMITIES: No cyanosis, clubbing, significant bilateral pedal edema extending up to bilateral knee area. Patient has about 10 into 7 cm ulceration on the dorsal aspect of the right foot stage II with venous discoloration in the center of the ulcer surrounding area is pinkish with healthy granulation tissue NEUROLOGICAL: Gross neurological examination did not reveal any focal deficits. SKIN: No rashes. Results CBC & Chem 7: 03/07/18 04:11 03/07/18 08:27 Labs: Abnormal Lab Results - Last 24 Hours (Table) 03/06/18 03/06/18 03/06/18 Range/Units 16:36 16:36 16:36 RBC 3.16 L (4.30-5.90) m/uL Hgb 8.5 L (13.0-17.5) gm/dL Hct 27.1 L (39.0-53.0) % BUN 46 H (9-20) mg/dL Creatinine 5.03 H* (0.66-1.25) mg/dL Glucose 51 L (74-99) mg/dL POC Glucose (mg/dL) (75-99) mg/dL Hemoglobin A1c (4.0-6.0) % Calcium 7.9 L (8.4-10.2) mg/dL Total Creatine Kinase 748 H (55-170) U/L CK-MB (CK-2) 7.2 H* (0.0-2.4) ng/mL Troponin I 0.156 H* (0.000-0.034) ng/mL Albumin 3.0 L (3.5-5.0) g/dL Triglycerides (<150) mg/dL HDL Cholesterol (40-60) mg/dL 03/06/18 03/06/18 03/06/18 Range/Units 19:58 20:33 20:33 RBC (4.30-5.90) m/uL Hgb (13.0-17.5) gm/dL Hct (39.0-53.0) % BUN (9-20) mg/dL Creatinine (0.66-1.25) mg/dL Glucose (74-99) mg/dL POC Glucose (mg/dL) 184 H (75-99) mg/dL Hemoglobin A1c 14.2 H (4.0-6.0) % Calcium (8.4-10.2) mg/dL Total Creatine Kinase 793 H (55-170) U/L CK-MB (CK-2) 8.0 H* (0.0-2.4) ng/mL Troponin I 0.178 H* (0.000-0.034) ng/mL Albumin (3.5-5.0) g/dL Triglycerides (<150) mg/dL HDL Cholesterol (40-60) mg/dL 03/07/18 03/07/18 03/07/18 Range/Units 04:11 04:11 06:05 RBC (4.30-5.90) m/uL Hgb (13.0-17.5) gm/dL Hct (39.0-53.0) % BUN (9-20) mg/dL Creatinine (0.66-1.25) mg/dL Glucose (74-99) mg/dL POC Glucose (mg/dL) 193 H (75-99) mg/dL Hemoglobin A1c (4.0-6.0) % Calcium (8.4-10.2) mg/dL Total Creatine Kinase 703 H (55-170) U/L CK-MB (CK-2) 6.9 H* (0.0-2.4) ng/mL Troponin I 0.180 H* (0.000-0.034) ng/mL Albumin (3.5-5.0) g/dL Triglycerides 156 H (<150) mg/dL HDL Cholesterol 38 L (40-60) mg/dL 03/07/18 03/07/18 Range/Units 08:27 11:21 RBC (4.30-5.90) m/uL Hgb (13.0-17.5) gm/dL Hct (39.0-53.0) % BUN 53 H (9-20) mg/dL Creatinine 5.37 H* (0.66-1.25) mg/dL Glucose 172 H (74-99) mg/dL POC Glucose (mg/dL) 312 H (75-99) mg/dL Hemoglobin A1c (4.0-6.0) % Calcium 7.6 L (8.4-10.2) mg/dL Total Creatine Kinase (55-170) U/L CK-MB (CK-2) (0.0-2.4) ng/mL Troponin I (0.000-0.034) ng/mL Albumin (3.5-5.0) g/dL Triglycerides (<150) mg/dL HDL Cholesterol (40-60) mg/dL Thrombosis Risk Factor Assmnt - Choose All That Apply Any of the Below Risk Factors Present?: Yes Each Factor Represents 1 point: Age 41-60 years, Obesity (BMI >25) Other Risk Factors: No Other congenital or acquired thrombophilia - If yes, enter type in comment: No Thrombosis Risk Factor Assessment Total Risk Factor Score: 2 Thrombosis Risk Factor Assessment Level: Low Risk Assessment and Plan Plan: -Congestive heart failure chronic systolic dysfunction nonischemic cardiomyopathy with acute exacerbation patient is on IV Lasix drip as mentioned above. Cardiac evaluated the patient. Repeat echocardiogram is being obtained -Acute renal failure: Secondary to cardiorenal syndrome expected to improve with IV Lasix which is being continued at this time. -Chronic kidney disease stage IV secondary to diabetic nephropathy. -Diabetic peripheral neuropathy -Diabetic foot ulcer, local wound care unsure whether patient will need antibiotics and infectious disease was consulted. -Mildly elevated troponins: He appeared to be secondary to renal dysfunction, patient does have chest pressure-like sensation cardiology evaluated the patient patient is on IV heparin at this time -Type 2 diabetes mellitus: Patient will be resumed on his home regimen with sliding scale insulin titration depending on his blood sugars here uncontrolled blood sugars at home with hemoglobin A1c of 14.2 his blood sugars can go down because of the renal dysfunction and decreased clearance of insulin -Hypertension -Hyperlipidemia
[2018-03-07 16:35] LABS: Glucose,Whole Blood 127 mg/dL (75-99)
[2018-03-07 16:48] LABS: Iron Saturation 10.42 (15.00-50.00)
--- NOTE | 2018-03-07 20:11 | ECHOF ---
Referral Reason:nstemi, chf MEASUREMENTS -------- HEIGHT: 188.0 cm WEIGHT: 133.4 kg BP: 144/76 RVIDd: 3.7 cm (< 3.3) IVSd: 1.9 cm (0.6 - 1.1) LVIDd: 6.1 cm (3.9 - 5.3) LVPWd: 1.7 cm (0.6 - 1.1) IVSs: 2.0 cm LVIDs: 5.5 cm LVPWs: 2.1 cm LA Diam: 5.0 cm (2.7 - 3.8) LAESV Index (A-L): 47.36 ml/m Ao Diam: 3.3 cm (2.0 - 3.7) AV Cusp: 2.2 cm (1.5 - 2.6) MV EXCURSION: 13.666 mm (> 18.000) MV EF SLOPE: 71 mm/s (70 - 150) EPSS: 1.6 cm RAP: 15.00 mmHg RVSP: 48.63 mmHg FINDINGS -------- Sinus rhythm. This was a technically adequate study. The left ventricle is mildly dilated. There is severe concentric left ventricular hypertrophy. Th ere is severe global hypokinesis of LV . Overall left ventricular systolic function is severely imp aired with, an EF between 20 - 25 %. The right ventricle is mild to moderately enlarged. LA is severely dilated >40 ml/m2 The aortic valve is trileaflet and appears structurally normal. Mild mitral annular calcification present. Moderate mitral regurgitation is present. Mild tricuspid regurgitation present. There is moderate pulmonary hypertension. The right ventric ular systolic pressure, as measured by Doppler, is 48.63mmHg. Moderate pulmonic regurgitation. The aortic root size is normal. The inferior vena cava is dilated with no significant inspiratory collapse which is consistent estima brett right atrial pressure of >15 mmHg. There is no pericardial effusion. CONCLUSIONS -------- 1. Sinus rhythm. 2. This was a technically adequate study. 3. The left ventricle is mildly dilated. 4. There is severe concentric left ventricular hypertrophy. 5. There is severe global hypokinesis of LV . 6. Overall left ventricular systolic function is severely impaired with, an EF between 20 - 25 %. 7. The right ventricle is mild to moderately enlarged. 8. LA is severely dilated >40 ml/m2 9. The aortic valve is trileaflet and appears structurally normal. 10. Mild mitral annular calcification present. 11. Moderate mitral regurgitation is present. 12. Mild tricuspid regurgitation present. 13. There is moderate pulmonary hypertension. 14. Moderate pulmonic regurgitation. 15. The aortic root size is normal. 16. The inferior vena cava is dilated with no significant inspiratory collapse which is consistent es timated right atrial pressure of >15 mmHg. 17. There is no pericardial effusion. BACK GRINDER: Peggy Lewis RDCS
[2018-03-07] MEDS ORDERED: INSULIN DETEMIR 100 UNIT/ML 10 ML VIAL SQ SCH (21:00)
[2018-03-07 21:15] LABS: Glucose,Whole Blood 181 mg/dL (75-99)
--- NOTE | 2018-03-07 22:44 | CONS ---
CONSULTATION DATE OF SERVICE: 03/07/2018. REASON FOR CONSULTATION: Right diabetic foot ulcer and need for antibiotic therapy. HISTORY OF PRESENT ILLNESS: The patient is a 42-year-old male with a past medical history of diabetes mellitus, chronic renal insufficiency, presenting to the ER at [facility] yesterday after with chief complaints of chest discomfort. The patient still had some chest tightness around 11 in the morning. The patient seemed to have been recently getting more weight with decreased urine output. The patient did have significant swelling in his leg. The patient developed a blister on his right foot about a week ago that has opened up leading to formation of perforated ulceration. The patient denies significant pain to the foot area. Some mild discomfort, though no drainage from it. Some swelling but no redness. The patient has not been running any fever or any chills. The patient did have x-rays of the foot which did show some soft tissue swelling but no evidence of any bony changes. The patient who has been afebrile since he has been admitted to the hospital and his white count has been normal. The patient was noticed to have significant drop in his creatinine with baseline of 5.37. The patient has been in the hospital with fluid overload along with right diabetic foot ulcer. Infectious Disease was consulted for further recommendation regarding right foot ulcer. REVIEW OF SYSTEMS: CONSTITUTIONAL: Positive for weakness. No high-grade fever. Eyes: No complaint. ENT: No complaint. Respiratory as per HPI. Cardiovascular: No complaint. Genitourinary as per HPI. Gastrointestinal: No complaint. Musculoskeletal: No complaint. Integumentary: As per HPI. Psychological: No complaint. Endocrine: No complaint. Neurologic: No complaint. PAST MEDICAL HISTORY: Hypertension, hyperlipidemia, diabetes mellitus, renal insufficiency, heart failure, neuropathy. PAST SURGICAL HISTORY: Heart catheterization with stent placement. SOCIAL HISTORY: Remote history of smoking. No drinking or drug use. FAMILY HISTORY: Mother with history of diabetes, hypertension, breast cancer. ALLERGIES: TO ASPIRIN. MEDICATIONS: Include the patient currently on aspirin and Lipitor, Coreg, Pepcid, Lasix drip, heparin, Neurontin, NovoLog, Levemir, Isordil, Zaroxolyn, Nitrostat and Entresto. EXAMINATION: Blood pressure is 139/93 with a pulse of 82, temperature 97.2, he is 97% on room air. General description is a middle aged male up in the bed in no distress. No tachypnea or accessory muscles of respiration use. HEENT: Shows pallor. No scleral icterus. Oral mucosal membranes is moist. No pharyngeal erythema or thrush. Neck trachea central. No thyromegaly. Lungs unlabored breathing. Decreased breath sounds at the bases. No wheeze. Heart S1, S2. Regular rate and rhythm. ABDOMEN: Soft, no tenderness. No guarding. No rigidity. No organomegaly. Legs with 2+ edema. Feet the patient did have some blister and superficial ulceration at the right foot lateral border with no slough tissue. No redness or any foul smelling drainage. Neurological: Patient is awake, alert, oriented and oriented times three. Mood and affect normal. LABS: Hemoglobin 8.5, white count 7.6, BUN of 53, creatinine 5.37. Electrolytes have been normal. No cultures. DIAGNOSTIC IMPRESSION AND PLAN: Patient with right diabetic foot ulcer, likely from excessive fluid. The patient has a significant secondary blister formation that has ruptured ulceration currently with no evidence of any cellulitis. The patient with no fever or elevated white count. Recommend local wound care only. No need for any systemic antibiotic therapy. PLAN: 1. Aquacel silver dressings to the affected right diabetic foot ulcer area. 2. James wrap from just above to below the knee. 3. We will watch his clinical course closely. If the patient develops any fever or any white count or any signs of inflammation around the wound area, appropriate cultures will be obtained before deciding discharge antibiotic. Thank you for this consultation. Will follow this patient along with you. MMODL / IJN: [id number] /
[2018-03-07] MEDS: INSULIN DETEMIR 100 UNIT/ML 10 ML VIAL SQ SCH (23:13)
[2018-03-07] MEDS: ATORVASTATIN 10 MG TAB PO SCH (23:13)
[2018-03-08] MEDS ORDERED: ACETAMINOPHEN TAB 325 MG TAB PO PRN (02:26)
[2018-03-08 06:09] LABS: Glucose,Whole Blood 250 mg/dL (75-99)
[2018-03-08 06:22] LABS: Mean Platelet Volume 7.6; Platelet Count 213 k/uL (150-450)
[2018-03-08 06:48] LABS: Calcium 7.1 mg/dL (8.4-10.2); Magnesium 1.5 mg/dL (1.6-2.3); Potassium 3.7 mmol/L (3.5-5.1)
[2018-03-08] MEDS: CARVEDILOL 12.5 MG TAB PO SCH ×2 (07:09→17:18)
[2018-03-08] MEDS: INSULIN ASPART 100 UNIT/ML 1 ML 10 ML VIAL SQ SCH ×7 (07:10→22:55)
[2018-03-08] MEDS: FUROSEMIDE 250 MG in SODIUM CHLORIDE 0.9% 225 ML IVP SCH ×3 (08:21→09:28)
[2018-03-08] MEDS: FAMOTIDINE 20 MG TAB PO SCH (08:21)
[2018-03-08] MEDS: SACUBITRIL/VALSARTAN 49 MG-51 MG TABLET PO SCH ×2 (08:22→22:53)
[2018-03-08] MEDS: ISOSORBIDE DINITRATE 20 MG TAB PO SCH ×2 (08:22→22:53)
[2018-03-08] MEDS: METOLAZONE 5 MG TAB PO SCH ×2 (08:22→22:55)
--- NOTE | 2018-03-08 08:55 | P.PN ---
Subjective Patient is seen in follow-up for acute kidney injury on chronic kidney disease. Patient has chronic kidney disease stage III with baseline creatinine in the range of 2.8-3.5 recently. Etiology is diabetic kidney disease and nephrosclerosis. Patient presented with CHF exacerbation and fluid overload. He is currently maintained on Lasix drip at 10 mL an hour and metolazone 5 mg daily. His creatinine was 5.37 on admission and is 5.3 today. Urine output is documented is 1.6 L in the last 24 hours. Denies hematuria or dysuria. Still feels edematous. Dyspnea is improved. He is noted to have ejection fraction of 20-25% with moderate mitral and pulmonic regurgitation and moderate pulmonary hypertension. Vital signs are stable. General: The patient appeared well nourished and normally developed. HEENT: Head exam is unremarkable. Neck is without jugular venous distension. LUNGS: Breath sounds decreased. HEART: Rate and Rhythm are regular. First and second heart sounds normal. No murmurs, rubs or gallops. ABDOMEN: Abdominal exam reveals normal bowel sounds. Non-tender and non- distended. No evidence of peritonitis. EXTREMITITES: 1+ edema. Objective - Vital Signs Vital signs: Vital Signs Temp 97.6 F 03/08/18 08:00 Pulse 80 03/08/18 08:00 Resp 18 03/08/18 04:00 BP 156/100 03/08/18 08:00 Pulse Ox 97 03/08/18 04:00 Intake & Output 03/07/18 03/08/18 03/08/18 18:59 06:59 18:59 Intake Total 774.895 291.713 474.667 Output Total 450 300 750 Balance 324.895 -8.287 -275.333 Weight 133.5 kg 135.2 kg Intake: Intake, IV Titration 414.895 291.713 234.667 Amount Furosemide 250 mg In 234.667 Sodium Chloride 0.9% 225 ml @ 10 MG/HR 10 mls/hr IVP .Q24H [facility] Rx#: [id number] Heparin Sodium,Porcine/ 414.895 291.713 D5w Pmx 25,000 unit In Dextrose/Water 1 500ml. bag @ 7.3001 UNITS/KG/HR 20 mls/hr IV .Q24H [facility] Rx #:[id number] Oral 360 240 Output: Urine 450 300 750 Other: Voiding Method Urinal # Voids 2 - Labs CBC & Chem 7: 03/08/18 05:42 03/08/18 05:42 Labs: Abnormal Lab Results - Last 24 Hours (Table) 03/07/18 03/07/18 03/07/18 Range/Units 08:27 08:27 11:21 APTT (22.0-30.0) sec Chloride (98-107) mmol/L BUN 53 H (9-20) mg/dL Creatinine 5.37 H* (0.66-1.25) mg/dL Glucose 172 H (74-99) mg/dL POC Glucose (mg/dL) 312 H (75-99) mg/dL Calcium 7.6 L (8.4-10.2) mg/dL Magnesium (1.6-2.3) mg/dL Iron 32 L (65-175) ug/dL Iron Saturation 10.42 L (15.00-50.00) 03/07/18 03/07/18 03/07/18 Range/Units 16:14 16:32 21:14 APTT 34.3 H (22.0-30.0) sec Chloride (98-107) mmol/L BUN (9-20) mg/dL Creatinine (0.66-1.25) mg/dL Glucose (74-99) mg/dL POC Glucose (mg/dL) 127 H 181 H (75-99) mg/dL Calcium (8.4-10.2) mg/dL Magnesium (1.6-2.3) mg/dL Iron (65-175) ug/dL Iron Saturation (15.00-50.00) 03/07/18 03/08/18 03/08/18 Range/Units 22:50 05:42 05:42 APTT 35.5 H 59.2 H (22.0-30.0) sec Chloride 97 L (98-107) mmol/L BUN 60 H (9-20) mg/dL Creatinine 5.30 H* (0.66-1.25) mg/dL Glucose 253 H (74-99) mg/dL POC Glucose (mg/dL) (75-99) mg/dL Calcium 7.1 L (8.4-10.2) mg/dL Magnesium 1.5 L (1.6-2.3) mg/dL Iron (65-175) ug/dL Iron Saturation (15.00-50.00) 03/08/18 Range/Units 06:08 APTT (22.0-30.0) sec Chloride (98-107) mmol/L BUN (9-20) mg/dL Creatinine (0.66-1.25) mg/dL Glucose (74-99) mg/dL POC Glucose (mg/dL) 250 H (75-99) mg/dL Calcium (8.4-10.2) mg/dL Magnesium (1.6-2.3) mg/dL Iron (65-175) ug/dL Iron Saturation (15.00-50.00) Assessment and Plan Plan: Assessment: 1. Nonoliguric acute kidney injury secondary to ATN secondary to cardiorenal syndrome. Creatinine 5.37 on admission - 5.3 today. No evidence of obstructive uropathy. 2. Chronic kidney disease stage III with creatinine in the range of 2.8-3.5 recently. Etiology is diabetic kidney disease and nephrosclerosis. 3. Systolic CHF with moderate mitral and pulmonic regurgitation and moderate pulmonary hypertension. 4. Volume overload. 5. Right foot ulcer being followed by infectious disease. 6. Anemia. Iron deficiency noted. 7. Hypertension with chronic kidney disease. Partially volume sensitive. 8. Hypomagnesemia secondary to diuresis. 9. Insulin-dependent diabetes mellitus. Plan: I will increase Lasix drip to 15 mL an hour. Increase metolazone to 5 mg twice daily. Follow-up urinalysis. Ferrlecit 125 mg IV daily for 3 days. First dose today. Replace magnesium. 2 g IV today. Low-salt diet and 1.5 L fluid restriction once on oral diet. Avoid nephrotoxic agents and hypotensive episodes. Strict I's and O's. Repeat electrolytes in the morning.
[2018-03-08] MEDS ORDERED: traMADol 50 MG TAB PO SCH (09:00)
[2018-03-08] MEDS: ASPIRIN 81 MG PO SCH (09:28)
[2018-03-08] MEDS: SODIUM FERRIC GLUCONAT-SUCROSE 125 MG in SODIUM CHLORIDE 0.9% 100 ML IVPB SCH (09:41)
--- NOTE | 2018-03-08 10:15 | P.PN ---
Subjective 42-year-old gentleman is admitted with a nonischemic cardiopathy ejection fraction of around 20-25% is on IV Lasix drip drip and the dose of Lasix drip was increased. Patient is being followed by nephrology and cardiology. Patient was pretty status improved his breathing is better today still having significant edema. Discussion regarding AICD was done but patient declined AICD in the past and now as it 60 inches congregational belief . Constitutional: Denied any fatigue denied any fever. Cardio vascular: denied any chest pain, palpitations Gastrointestinal denied any nausea vomiting Pulmonary: As mentioned in the control history Neurologic denied any new focal deficits Objective - Vital Signs Vital signs: Vital Signs Temp 97.6 F 03/08/18 08:00 Pulse 80 03/08/18 08:00 Resp 18 03/08/18 04:00 BP 156/100 03/08/18 08:00 Pulse Ox 97 03/08/18 04:00 Intake & Output 03/07/18 03/08/18 03/08/18 18:59 06:59 18:59 Intake Total 774.895 291.713 485.834 Output Total 450 300 750 Balance 324.895 -8.287 -264.166 Weight 133.5 kg 135.2 kg Intake: Intake, IV Titration 414.895 291.713 245.834 Amount Furosemide 250 mg In 245.834 Sodium Chloride 0.9% 225 ml @ 15 MG/HR 15 mls/hr IVP .[id number] [facility] Rx#: [id number] Heparin Sodium,Porcine/ 414.895 291.713 D5w Pmx 25,000 unit In Dextrose/Water 1 500ml. bag @ 7.3001 UNITS/KG/HR 20 mls/hr IV .Q24H [facility] Rx #:[id number] Oral 360 240 Output: Urine 450 300 750 Other: Voiding Method Urinal # Voids 2 - Exam PHYSICAL EXAMINATION: GENERAL: The patient is alert and oriented x3, not in any acute distress. Morbidly obese HEENT: Pupils are round and equally reacting to light. EOMI. No scleral icterus. No conjunctival pallor. Normocephalic, atraumatic. No pharyngeal erythema. No thyromegaly. CARDIOVASCULAR: S1 and S2 present. No murmurs, rubs, or gallops. Patient has elevated JVD does have S3 PULMONARY: Chest is clear to auscultation, no wheezing or crackles. ABDOMEN: Soft, nontender, nondistended, normoactive bowel sounds. No palpable organomegaly. MUSCULOSKELETAL: No joint swelling or deformity. EXTREMITIES: No cyanosis, clubbing, significant bilateral pedal edema extending up to bilateral knee area. Patient has about 10 into 7 cm ulceration on the dorsal aspect of the right foot stage II with venous discoloration in the center of the ulcer surrounding area is pinkish with healthy granulation tissue NEUROLOGICAL: Gross neurological examination did not reveal any focal deficits. SKIN: No rashes. - Labs CBC & Chem 7: 03/08/18 05:42 03/08/18 05:42 Labs: Abnormal Lab Results - Last 24 Hours (Table) 03/07/18 03/07/18 03/07/18 Range/Units 08:27 11:21 16:14 APTT 34.3 H (22.0-30.0) sec Chloride (98-107) mmol/L BUN (9-20) mg/dL Creatinine (0.66-1.25) mg/dL Glucose (74-99) mg/dL POC Glucose (mg/dL) 312 H (75-99) mg/dL Calcium (8.4-10.2) mg/dL Magnesium (1.6-2.3) mg/dL Iron 32 L (65-175) ug/dL Iron Saturation 10.42 L (15.00-50.00) 03/07/18 03/07/18 03/07/18 Range/Units 16:32 21:14 22:50 APTT 35.5 H (22.0-30.0) sec Chloride (98-107) mmol/L BUN (9-20) mg/dL Creatinine (0.66-1.25) mg/dL Glucose (74-99) mg/dL POC Glucose (mg/dL) 127 H 181 H (75-99) mg/dL Calcium (8.4-10.2) mg/dL Magnesium (1.6-2.3) mg/dL Iron (65-175) ug/dL Iron Saturation (15.00-50.00) 03/08/18 03/08/18 03/08/18 Range/Units 05:42 05:42 06:08 APTT 59.2 H (22.0-30.0) sec Chloride 97 L (98-107) mmol/L BUN 60 H (9-20) mg/dL Creatinine 5.30 H* (0.66-1.25) mg/dL Glucose 253 H (74-99) mg/dL POC Glucose (mg/dL) 250 H (75-99) mg/dL Calcium 7.1 L (8.4-10.2) mg/dL Magnesium 1.5 L (1.6-2.3) mg/dL Iron (65-175) ug/dL Iron Saturation (15.00-50.00) Assessment and Plan Plan: -Congestive heart failure chronic systolic dysfunction nonischemic cardiomyopathy with acute exacerbation patient is on IV Lasix drip as mentioned above. Cardiac evaluated the patient. Repeat echocardiogram showed an ejection fraction of 20-25%. Repeat basic metabolic profile tomorrow -Acute renal failure: Prerenal azotemia Secondary to cardiorenal syndrome expected to improve with IV Lasix which is being continued at this time. -Chronic kidney disease stage IV secondary to diabetic nephropathy. -Diabetic peripheral neuropathy -Diabetic foot ulcer, local wound care unsure whether patient will need antibiotics and infectious disease was consulted. -Mildly elevated troponins: He appeared to be secondary to renal dysfunction, patient does have chest pressure-like sensation cardiology evaluated the patient patient is on IV heparin at this time -Type 2 diabetes mellitus: Patient will be resumed on his home regimen with sliding scale insulin titration depending on his blood sugars here uncontrolled blood sugars at home with hemoglobin A1c of 14.2 his blood sugars can go down because of the renal dysfunction and decreased clearance of insulin -Hypertension -Hyperlipidemia
[2018-03-08] MEDS: MAGNESIUM SULFATE-D5W PMX 1 GM in DEXTROSE/WATER 1 100ML.BAG IVPB SCH ×2 (11:17→12:26)
[2018-03-08 11:28] LABS: Glucose,Whole Blood 136 mg/dL (75-99)
[2018-03-08] MEDS ORDERED: Potassium Replacement Protocol 1 EACH MISC MISCELLANE PRN (11:40)
[2018-03-08] MEDS ORDERED: Magnesium Replacement Protocol 1 EACH MISC MISCELLANE PRN (11:41)
[2018-03-08 11:50] LABS: Appearance,Urine Clear (Clear); Bilirubin,Urine Negative (Negative); Blood,Urine Small (Negative); Color,Urine Light Yellow; Glucose,Urine (UA) 1+ (Negative); Ketones,Urine Negative (Negative); Leukocyte Esterase,Urine Negative (Negative); Nitrite,Urine Negative (Negative); Protein,Urine 2+ (Negative); RBC,Urine 2 /hpf (0-5); Specific Gravity,Urine 1.007 (1.001-1.035); Urobilinogen,Urine <2.0 mg/dL (<2.0); WBC,Urine 1 /hpf (0-5)
[2018-03-08] MEDS ORDERED: POTASSIUM CHLORIDE ER 20 MEQ TAB.ER PO SCH (12:00)
[2018-03-08] MEDS ORDERED: ONDANSETRON 4 MG/2 ML VIAL IVP PRN (14:53)
[2018-03-08 16:47] LABS: Glucose,Whole Blood 163 mg/dL (75-99)
--- NOTE | 2018-03-08 19:44 | PN ---
PROGRESS NOTE DATE OF SERVICE: 03/08/2018. REASON FOR FOLLOWUP: Right diabetic foot ulcer. INTERVAL HISTORY: The patient is afebrile. He seems to be breathing more comfortably. Did have some chest discomfort this morning with improved afterwards. No abdominal pain. Denies having pain in his right foot wound area or any drainage. EXAMINATION: Blood pressure 116/59 with a pulse of 72, temperature 97. He is 98% on room air. General description is a middle aged male up in the bed in no distress. Respiratory system: Unlabored breathing with decreased breath sounds at the base. HEART: S1, S2. Regular rate and rhythm. Abdomen soft, no tenderness. Right foot is currently dressed up. No obvious drainage on the dressing. LABS: BUN of 16, creatinine 5.30. UA has been negative. DIAGNOSTIC IMPRESSION AND PLAN: Patient right diabetic foot ulcer and likely from a ruptured blister. The patient did have evidence of significant fluid overload. Clinically no evidence of any cellulitis. No fever or elevated white count. Local wound care with Aquacel Silver dressing followed by the James wrap to keep the swelling down. No need for any systemic antibiotic therapy. MMODL / IJN: [id number] /
[2018-03-08 21:32] LABS: Glucose,Whole Blood 154 mg/dL (75-99)
[2018-03-08] MEDS: ATORVASTATIN 10 MG TAB PO SCH (22:52)
[2018-03-08] MEDS: INSULIN DETEMIR 100 UNIT/ML 10 ML VIAL SQ SCH (22:52)
[2018-03-09 06:06] LABS: Glucose,Whole Blood 225 mg/dL (75-99)
[2018-03-09 06:27] LABS: Mean Platelet Volume 7.7; Platelet Count 236 k/uL (150-450)
[2018-03-09] MEDS: CARVEDILOL 12.5 MG TAB PO SCH ×2 (06:49→17:13)
[2018-03-09] MEDS: INSULIN ASPART 100 UNIT/ML 1 ML 10 ML VIAL SQ SCH ×7 (06:50→21:14)
[2018-03-09 07:23] LABS: Calcium 7.3 mg/dL (8.4-10.2); Magnesium 1.7 mg/dL (1.6-2.3); Potassium 3.5 mmol/L (3.5-5.1)
[2018-03-09] MEDS: METOLAZONE 5 MG TAB PO SCH ×2 (09:10→20:00)
[2018-03-09] MEDS: ASPIRIN 81 MG PO SCH (09:10)
[2018-03-09] MEDS: ISOSORBIDE DINITRATE 20 MG TAB PO SCH ×2 (09:10→20:00)
[2018-03-09] MEDS: SACUBITRIL/VALSARTAN 49 MG-51 MG TABLET PO SCH ×2 (09:10→20:00)
[2018-03-09] MEDS: FAMOTIDINE 20 MG TAB PO SCH (09:10)
[2018-03-09] MEDS: SODIUM FERRIC GLUCONAT-SUCROSE 125 MG in SODIUM CHLORIDE 0.9% 100 ML IVPB SCH (09:12)
[2018-03-09] MEDS: HEPARIN SODIUM,PORCINE/D5W PMX 25,000 UNIT in DEXTROSE/WATER 1 500ML.BAG IV SCH (09:12)
[2018-03-09 11:38] LABS: Glucose,Whole Blood 168 mg/dL (75-99)
[2018-03-09] MEDS: FUROSEMIDE 250 MG in SODIUM CHLORIDE 0.9% 225 ML IVP SCH ×3 (12:38→22:37)
--- NOTE | 2018-03-09 14:21 | P.PN ---
Subjective 42-year-old gentleman is admitted with a nonischemic cardiopathy ejection fraction of around 20-25% is on IV Lasix drip drip and the dose of Lasix drip was increased. Patient is being followed by nephrology and cardiology. Patient was pretty status improved his breathing is better today still having significant edema. Discussion regarding AICD was done but patient declined AICD in the past and now as it 60 inches pentecostal belief. 03/09/2018 Patient respiratory status is much better today still has significant bilateral pedal edema remains on IV Lasix IV heparin probably IV heparin can be discontinued will discuss with cardiology. Constitutional: Denied any fatigue denied any fever. Cardio vascular: denied any chest pain, palpitations Gastrointestinal denied any nausea vomiting Pulmonary: As mentioned in the control history Neurologic denied any new focal deficits Objective - Vital Signs Vital signs: Vital Signs Temp 97.1 F L 03/09/18 08:00 Pulse 83 03/09/18 08:00 Resp 18 03/09/18 06:27 BP 132/86 03/09/18 08:00 Pulse Ox 100 03/09/18 08:48 Intake & Output 03/08/18 03/09/18 03/09/18 18:59 06:59 18:59 Intake Total 729.050 6881 580 Output Total 1950 Balance -033.824 2057 580 Weight 134.4 kg Intake: Intake, IV Titration 245.834 250 Amount Furosemide 250 mg In 245.834 250 Sodium Chloride 0.9% 225 ml @ 15 MG/HR 15 mls/hr IVP .[id number] [facility] Rx#: [id number] Oral 717 840 580 Output: Urine 1950 Other: Voiding Method Urinal Urinal - Exam PHYSICAL EXAMINATION: GENERAL: The patient is alert and oriented x3, not in any acute distress. Morbidly obese HEENT: Pupils are round and equally reacting to light. EOMI. No scleral icterus. No conjunctival pallor. Normocephalic, atraumatic. No pharyngeal erythema. No thyromegaly. CARDIOVASCULAR: S1 and S2 present. No murmurs, rubs, or gallops. Patient has elevated JVD does have S3 PULMONARY: Chest is clear to auscultation, no wheezing or crackles. ABDOMEN: Soft, nontender, nondistended, normoactive bowel sounds. No palpable organomegaly. MUSCULOSKELETAL: No joint swelling or deformity. EXTREMITIES: No cyanosis, clubbing, significant bilateral pedal edema extending up to bilateral knee area. Patient has about 10 into 7 cm ulceration on the dorsal aspect of the right foot stage II NEUROLOGICAL: Gross neurological examination did not reveal any focal deficits. SKIN: No rashes. - Labs CBC & Chem 7: 03/09/18 06:02 03/09/18 06:02 Labs: Abnormal Lab Results - Last 24 Hours (Table) 03/08/18 03/08/18 03/09/18 Range/Units 16:45 21:31 06:02 Chloride 93 L (98-107) mmol/L BUN 60 H (9-20) mg/dL Creatinine 5.92 H* (0.66-1.25) mg/dL Glucose 214 H (74-99) mg/dL POC Glucose (mg/dL) 163 H 154 H (75-99) mg/dL Calcium 7.3 L (8.4-10.2) mg/dL 03/09/18 03/09/18 Range/Units 06:04 11:37 Chloride (98-107) mmol/L BUN (9-20) mg/dL Creatinine (0.66-1.25) mg/dL Glucose (74-99) mg/dL POC Glucose (mg/dL) 225 H 168 H (75-99) mg/dL Calcium (8.4-10.2) mg/dL Assessment and Plan Plan: -Congestive heart failure chronic systolic dysfunction nonischemic cardiomyopathy with acute exacerbation patient is on IV Lasix drip as mentioned above. Cardiac evaluated the patient. Repeat echocardiogram showed an ejection fraction of 20-25%. Repeat basic metabolic profile tomorrow -Acute renal failure: Prerenal azotemia Secondary to cardiorenal syndrome expected to improve with IV Lasix which is being continued at this time. -Chronic kidney disease stage IV secondary to diabetic nephropathy. -Diabetic peripheral neuropathy -Diabetic foot ulcer, local wound care unsure whether patient will need antibiotics and infectious disease was consulted. -Mildly elevated troponins: He appeared to be secondary to renal dysfunction, patient does have chest pressure-like sensation cardiology evaluated the patient IV heparin will be discontinued -Type 2 diabetes mellitus: Patient will be resumed on his home regimen with sliding scale insulin titration depending on his blood sugars are controlleds here, and uncontrolled at home -Hypertension -Hyperlipidemia
[2018-03-09] MEDS ORDERED: MAGNESIUM SULFATE-D5W PMX 1 GM in DEXTROSE/WATER 1 100ML.BAG IVPB ONE (15:36)
--- NOTE | 2018-03-09 15:37 | P.PN ---
Subjective Patient is seen in follow-up for acute kidney injury on chronic kidney disease. Patient has chronic kidney disease stage III with baseline creatinine in the range of 2.8-3.5 recently. Etiology is diabetic kidney disease and nephrosclerosis. Patient presented with CHF exacerbation and fluid overload. He is currently maintained on Lasix drip at 15 mL an hour and metolazone 5 mg bid. His creatinine was 5.37 on admission and is 5.92 today. Urine output is documented is 1.9 L in the last 24 hours. Denies hematuria or dysuria. Still feels edematous. Dyspnea is improved. He is noted to have ejection fraction of 20-25% with moderate mitral and pulmonic regurgitation and moderate pulmonary hypertension. Vital signs are stable. General: The patient appeared well nourished and normally developed. HEENT: Head exam is unremarkable. Neck is without jugular venous distension. LUNGS: Breath sounds decreased. HEART: Rate and Rhythm are regular. First and second heart sounds normal. No murmurs, rubs or gallops. ABDOMEN: Abdominal exam reveals normal bowel sounds. Non-tender and non- distended. No evidence of peritonitis. EXTREMITITES: 1+ edema. Objective - Vital Signs Vital signs: Vital Signs Temp 97.1 F L 03/09/18 08:00 Pulse 82 03/09/18 12:00 Resp 18 03/09/18 06:27 BP 127/83 03/09/18 12:00 Pulse Ox 100 03/09/18 12:00 Intake & Output 03/08/18 03/09/18 03/09/18 18:59 06:59 18:59 Intake Total 199.343 6761 680 Output Total 1950 Balance -086.112 4174 680 Weight 134.4 kg Intake: Intake, IV Titration 245.834 250 100 Amount Furosemide 250 mg In 245.834 250 Sodium Chloride 0.9% 225 ml @ 15 MG/HR 15 mls/hr IVP .[id number] [facility] Rx#: [id number] Sodium Ferric Gluconat- 100 Sucrose 125 mg In Sodium Chloride 0.9% 100 ml @ 100 mls/hr IVPB DAILY [facility] Rx#:[id number] Oral 717 840 580 Output: Urine 1950 Other: Voiding Method Urinal Urinal - Labs CBC & Chem 7: 03/09/18 06:02 03/09/18 06:02 Labs: Abnormal Lab Results - Last 24 Hours (Table) 03/08/18 03/08/18 03/09/18 Range/Units 16:45 21:31 06:02 Chloride 93 L (98-107) mmol/L BUN 60 H (9-20) mg/dL Creatinine 5.92 H* (0.66-1.25) mg/dL Glucose 214 H (74-99) mg/dL POC Glucose (mg/dL) 163 H 154 H (75-99) mg/dL Calcium 7.3 L (8.4-10.2) mg/dL 03/09/18 03/09/18 Range/Units 06:04 11:37 Chloride (98-107) mmol/L BUN (9-20) mg/dL Creatinine (0.66-1.25) mg/dL Glucose (74-99) mg/dL POC Glucose (mg/dL) 225 H 168 H (75-99) mg/dL Calcium (8.4-10.2) mg/dL Assessment and Plan Plan: Assessment: 1. Nonoliguric acute kidney injury secondary to ATN secondary to cardiorenal syndrome. Creatinine 5.37 on admission - 5.9 today. No evidence of obstructive uropathy. 2. Chronic kidney disease stage III with creatinine in the range of 2.8-3.5 recently. Etiology is diabetic kidney disease and nephrosclerosis. 3. Systolic CHF with moderate mitral and pulmonic regurgitation and moderate pulmonary hypertension. 4. Volume overload. 5. Right foot ulcer being followed by infectious disease. 6. Anemia. Iron deficiency noted. 7. Hypertension with chronic kidney disease. Partially volume sensitive. Controlled. 8. Hypomagnesemia secondary to diuresis. 9. Insulin-dependent diabetes mellitus. Plan: I will increase Lasix drip to 20 mL an hour. Maintain metolazone 5 mg twice daily. Ferrlecit 125 mg IV daily for 3 days. Second dose today. Replace magnesium. 1 g IV today. Low-salt diet and 1.5 L fluid restriction once on oral diet. Avoid nephrotoxic agents and hypotensive episodes. Strict I's and O's. Repeat electrolytes in the morning. Due to worsening renal function, I will check serologies as well. I did discuss the potential need for renal replacement therapy if no improvement in his renal function in the next 24-48 hours. Patient states he will think about it.
--- NOTE | 2018-03-09 15:44 | P.PN ---
Subjective Progress Note Date: 03/09/18 This is a 42-year-old gentleman with history of chronic renal failure was admitted with evidence of CHF, Edema and fluid overload. Patient is on IV Lasix and also on metolazone. Patient's creatinine has gone up. Patient is still complaining of shortness of breath but has improved compared to the admission. He still has edema. Foster Care Worker is increase the dose of the Lasix to 20 mg. Patient is also complaining of intermittent nausea. Patient may benefit from dialysis. Prognosis is guarded. Apparently patient has declined AICD in the past. Objective - Vital Signs Vital signs: Vital Signs Temp 97.1 F L 03/09/18 08:00 Pulse 82 03/09/18 12:00 Resp 18 03/09/18 06:27 BP 127/83 03/09/18 12:00 Pulse Ox 100 03/09/18 12:00 Intake & Output 03/08/18 03/09/18 03/09/18 18:59 06:59 18:59 Intake Total 508.165 4022 680 Output Total 1950 Balance -730.183 7493 680 Weight 134.4 kg Intake: Intake, IV Titration 245.834 250 100 Amount Furosemide 250 mg In 245.834 250 Sodium Chloride 0.9% 225 ml @ 15 MG/HR 15 mls/hr IVP .[id number] [facility] Rx#: [id number] Sodium Ferric Gluconat- 100 Sucrose 125 mg In Sodium Chloride 0.9% 100 ml @ 100 mls/hr IVPB DAILY [facility] Rx#:[id number] Oral 717 840 580 Output: Urine 1950 Other: Voiding Method Urinal Urinal - Exam GENERAL EXAM: Patient is alert and oriented and appear to be in any acute distress HEENT: Normocephalic. Normal reaction of pupils, equal size, normal range of extraocular motion. No erythema or exudates in the throat. NECK: No masses, no nuchal rigidity. CHEST: No chest wall deformity. LUNGS: Diminished breath sounds HEART: S1 and S2 normal with no audible mumurs or gallops. Regular rhythm, femorals equal on both sides.. ABDOMEN: No hepatosplenomegaly, normal bowel sounds, no guarding or rigidity. SKIN: No rashes CENTRAL NERVOUS SYSTEM: No focal deficits. EXTREMITIES: Significant edema - Labs CBC & Chem 7: 03/09/18 06:02 05/18/18 06:02 Labs: Abnormal Lab Results - Last 24 Hours (Table) 03/08/18 03/08/18 03/09/18 Range/Units 16:45 21:31 06:02 Chloride 93 L (98-107) mmol/L BUN 60 H (9-20) mg/dL Creatinine 5.92 H* (0.66-1.25) mg/dL Glucose 214 H (74-99) mg/dL POC Glucose (mg/dL) 163 H 154 H (75-99) mg/dL Calcium 7.3 L (8.4-10.2) mg/dL 03/09/18 03/09/18 Range/Units 06:04 11:37 Chloride (98-107) mmol/L BUN (9-20) mg/dL Creatinine (0.66-1.25) mg/dL Glucose (74-99) mg/dL POC Glucose (mg/dL) 225 H 168 H (75-99) mg/dL Calcium (8.4-10.2) mg/dL Assessment and Plan (1) Cardiomyopathy Current Visit: Yes Status: Acute Code(s): I42.9 - CARDIOMYOPATHY, UNSPECIFIED SNOMED Code(s): 67163098 (2) CHF (congestive heart failure) Current Visit: Yes Status: Acute Code(s): I50.9 - HEART FAILURE, UNSPECIFIED SNOMED Code(s): 00454123 (3) CKD (chronic kidney disease) Current Visit: Yes Status: Acute Code(s): N18.9 - CHRONIC KIDNEY DISEASE, UNSPECIFIED SNOMED Code(s): 315699833 Plan: Continue with current management. Patient may benefit from dialysis. Prognosis is guarded
[2018-03-09 16:14] LABS: Glucose,Whole Blood 198 mg/dL (75-99)
[2018-03-09] MEDS: HEPARIN SODIUM,PORCINE 5,000 UNIT/ML 1 ML VIAL SQ SCH ×2 (17:12→23:47)
--- NOTE | 2018-03-09 17:28 | PN ---
PROGRESS NOTE DATE OF SERVICE: 03/09/2018 REASON FOR FOLLOWUP: Right diabetic foot ulcer. INTERVAL HISTORY: The patient is afebrile. He is currently breathing comfortably. Denies having any chest pain or cough. No abdominal pain or any pain in the right foot area. PHYSICAL EXAMINATION: Blood pressure 127/83, pulse of 82, temperature 97.1. He is 100% on room air. General description is a middle-aged male lying in bed in no distress. RESPIRATORY SYSTEM: Unlabored breathing. Clear to auscultation anteriorly. HEART: S1, S2. Regular rate and rhythm. ABDOMEN: Soft. No tenderness. Right foot is currently dressed up. No obvious drainage on the dressing. LABS: BUN of 60. Creatinine is 5.92. DIAGNOSTIC IMPRESSION AND PLAN: Patient with right diabetic foot ulcer without evidence of cellulitis, likely a ruptured blister. Needs aggressive treatment for his underlying swelling to help heal up. Local wound care to continue with Aquacel Silver. No need for any systemic antibiotic therapy. Continue with supportive care. MMODL / IJN: [id number] /
[2018-03-09] MEDS: ATORVASTATIN 10 MG TAB PO SCH (20:00)
[2018-03-09 20:53] LABS: Glucose,Whole Blood 177 mg/dL (75-99)
[2018-03-09] MEDS: INSULIN DETEMIR 100 UNIT/ML 10 ML VIAL SQ SCH (21:13)
[2018-03-10] MEDS: FUROSEMIDE 250 MG in SODIUM CHLORIDE 0.9% 225 ML IVP SCH ×3 (00:12→20:07)
[2018-03-10 01:04] LABS: DNA Double-Stranded NEGATIVE (NEGATIVE)
[2018-03-10 01:18] LABS: Hepatitis A Antibody IgM Non-Reactive (Non-Reactive); Hepatitis B Core IgM Non-Reactive (Non-Reactive)
[2018-03-10 06:09] LABS: Glucose,Whole Blood 201 mg/dL (75-99)
[2018-03-10 06:30] LABS: Basophils % (A) 1 %; Eosinophils # (A) 0.2 k/uL (0-0.7); Eosinophils % (A) 3 %; HCT 31.8 % (39.0-53.0); HGB 9.7 gm/dL (13.0-17.5); Hypochromasia Slight; Lymphocytes # (A) 1.1 k/uL (1.0-4.8); Lymphocytes % (A) 19 %; MCH 26.7 pg (25.0-35.0); MCHC 30.6 g/dL (31.0-37.0); MCV 87.2 fL (80.0-100.0); Mean Platelet Volume 7.1; Monocytes # (A) 0.6 k/uL (0-1.0); Monocytes % (A) 11 %; Neutrophils # (A) 3.7 k/uL (1.3-7.7); Neutrophils % (A) 64 %; Platelet Count 243 k/uL (150-450); RBC 3.64 m/uL (4.30-5.90); RDW 14.6 % (11.5-15.5); WBC 5.8 k/uL (3.8-10.6)
[2018-03-10 06:45] LABS: Calcium 7.5 mg/dL (8.4-10.2); Magnesium 1.8 mg/dL (1.6-2.3); Potassium 3.9 mmol/L (3.5-5.1)
[2018-03-10] MEDS: CARVEDILOL 12.5 MG TAB PO SCH ×2 (06:56→17:10)
[2018-03-10] MEDS: INSULIN ASPART 100 UNIT/ML 1 ML 10 ML VIAL SQ SCH ×7 (07:00→21:05)
--- NOTE | 2018-03-10 07:16 | P.PN ---
Subjective Progress Note Date: 03/10/18 Principal diagnosis: 42-year-old male with chronic kidney disease secondary diabetic nephropathy baseline creatinine of 3 admitted with worsening edema and shortness of breath. He is on Lasix drip, and metolazone 5 mg. His urine output is 3700 for the last 24 hours.. His creatinine remained stable but his edema is improved and his shortness of breath is improved. Has a fair appetite. No dizziness. History of present illness;Patient presented to the hospital with left-sided chest discomfort which he attributes to excess fluid around his lungs. Patient states he has history of congestive heart failure and has gained about 35 pounds in the last 2-3 months. He admits that his urine output was less than usual the last few days. He was receiving IV Lasix bolus and is now on a Lasix drip at 10 mL an hour. Urine output is improved. No hematuria or dysuria. No vomiting or diarrhea. Chest discomfort has improved. He was also being treated for a right foot ulcer for which he was evaluated as an outpatient and due to drainage he was sent to the hospital for further care. He does have quite a bit of edema. Hemodynamically he is stable. He has a long-standing history of diabetes - states he was diagnosed at the age of 21. Objective - Vital Signs Vital signs: Vital Signs Temp 97.2 F L 03/10/18 03:44 Pulse 82 03/10/18 03:46 Resp 18 03/10/18 03:46 BP 118/81 03/10/18 03:44 Pulse Ox 99 03/10/18 03:44 Intake & Output 03/09/18 03/10/18 03/10/18 18:59 06:59 18:59 Intake Total 920 269.25 Output Total 800 2900 Balance 120 -2630.75 Weight 131.5 kg Intake: Intake, IV Titration 100 269.25 Amount Furosemide 250 mg In 269.25 Sodium Chloride 0.9% 225 ml @ 20 MG/HR 20 mls/hr IVP .[id number] RICK Rx#: [id number] Sodium Ferric Gluconat- 100 Sucrose 125 mg In Sodium Chloride 0.9% 100 ml @ 100 mls/hr IVPB DAILY RICK Rx#:[id number] Oral 820 Output: Urine 800 2900 Other: Voiding Method Urinal # Bowel Movements 1 On examination is awake alert oriented comfortable HEENT exam no JVP neck is supple no facial asymmetry Lungs are clear to auscultation good air entry bilaterally Heart sounds are unremarkable for any murmur rub gallop Abdomen soft nontender somewhat obese distended Sami exam was 2-3+ edema with thick coarse skin. Patient claims his edema is better Neurologically awake alert oriented - Labs CBC & Chem 7: 03/10/18 05:37 03/10/18 05:37 Labs: Abnormal Lab Results - Last 24 Hours (Table) 03/09/18 03/09/18 03/09/18 Range/Units 06:02 11:37 16:12 RBC (4.30-5.90) m/uL Hgb (13.0-17.5) gm/dL Hct (39.0-53.0) % MCHC (31.0-37.0) g/dL Chloride 93 L (98-107) mmol/L BUN 60 H (9-20) mg/dL Creatinine 5.92 H* (0.66-1.25) mg/dL Glucose 214 H (74-99) mg/dL POC Glucose (mg/dL) 168 H 198 H (75-99) mg/dL Calcium 7.3 L (8.4-10.2) mg/dL U Random Total Protein (<12) mg/dL 03/09/18 03/09/18 03/10/18 Range/Units 18:06 20:52 05:37 RBC (4.30-5.90) m/uL Hgb (13.0-17.5) gm/dL Hct (39.0-53.0) % MCHC (31.0-37.0) g/dL Chloride 95 L (98-107) mmol/L BUN 65 H (9-20) mg/dL Creatinine 5.73 H* (0.66-1.25) mg/dL Glucose 199 H (74-99) mg/dL POC Glucose (mg/dL) 177 H (75-99) mg/dL Calcium 7.5 L (8.4-10.2) mg/dL U Random Total Protein 126 H (<12) mg/dL 03/10/18 03/10/18 Range/Units 05:37 06:07 RBC 3.64 L (4.30-5.90) m/uL Hgb 9.7 L (13.0-17.5) gm/dL Hct 31.8 L (39.0-53.0) % MCHC 30.6 L (31.0-37.0) g/dL Chloride (98-107) mmol/L BUN (9-20) mg/dL Creatinine (0.66-1.25) mg/dL Glucose (74-99) mg/dL POC Glucose (mg/dL) 201 H (75-99) mg/dL Calcium (8.4-10.2) mg/dL U Random Total Protein (<12) mg/dL Assessment and Plan Assessment: Impression. 1. Acute kidney injury secondary to CHF and cardiorenal syndrome, creatinine stable urine output is adequate. 2. Chronic kidney disease secondary diabetic nephropathy creatinine about 3 3. Significant edema improved on Lasix. 4. Anemia with hemoglobin of 9.7, from chronic kidney disease and iron deficiency with a saturation of 10% on 03/07/2018. Plan- 1. Maintain Lasix drip and metolazone. 2. Monitor labs. 3. On ferric gluconate 125 mg daily for 3 days started 02/24/1718.. 4. Consider stopping the valsartan from the admission drug because of the lack of improvement of creatinine
[2018-03-10] MEDS: HEPARIN SODIUM,PORCINE 5,000 UNIT/ML 1 ML VIAL SQ SCH ×2 (09:20→17:10)
[2018-03-10] MEDS: SODIUM FERRIC GLUCONAT-SUCROSE 125 MG in SODIUM CHLORIDE 0.9% 100 ML IVPB SCH (09:21)
[2018-03-10] MEDS: ASPIRIN 81 MG PO SCH (09:21)
[2018-03-10] MEDS: FAMOTIDINE 20 MG TAB PO SCH (09:21)
[2018-03-10] MEDS: ISOSORBIDE DINITRATE 20 MG TAB PO SCH ×2 (09:21→20:27)
[2018-03-10] MEDS: SACUBITRIL/VALSARTAN 49 MG-51 MG TABLET PO SCH (09:21)
[2018-03-10] MEDS: METOLAZONE 5 MG TAB PO SCH ×2 (09:21→20:28)
[2018-03-10 11:49] LABS: Glucose,Whole Blood 174 mg/dL (75-99)
--- NOTE | 2018-03-10 14:58 | P.PN ---
Subjective Progress Note Date: 03/10/18 This is a 42-year-old gentleman with history of chronic renal failure was admitted with evidence of CHF, Edema and fluid overload. Patient is on IV Lasix and also on metolazone. Patient's creatinine has gone up. Patient is still complaining of shortness of breath but has improved compared to the admission. He still has edema. [employer] Operator is increase the dose of the Lasix to 20 mg. Patient is also complaining of intermittent nausea. Patient may benefit from dialysis. Prognosis is guarded. Apparently patient has declined AICD in the past. 02/28/2018: The patient seemed to be feeling better. His edema is down. He is less short of breath. His creatinine is still high. [employer] Operator suggested stopping Entresto. We'll stop the medication temporarily and see if there is any significant improvement in creatinine. Patient also make be constricted for dialysis. From Cardec standpoint patient seemed to be better. We'll continue the IV Lasix for another 24 hours Objective - Vital Signs Vital signs: Vital Signs Temp 98.1 F 03/10/18 08:00 Pulse 78 03/10/18 12:00 Resp 17 03/10/18 12:00 BP 130/81 03/10/18 12:00 Pulse Ox 98 03/10/18 12:00 Intake & Output 03/09/18 03/10/18 03/10/18 18:59 06:59 18:59 Intake Total 920 269.25 720 Output Total 800 2900 400 Balance 120 -2630.75 320 Weight 131.5 kg Intake: Intake, IV Titration 100 269.25 Amount Furosemide 250 mg In 269.25 Sodium Chloride 0.9% 225 ml @ 20 MG/HR 20 mls/hr IVP .[id number] RICK Rx#: [id number] Sodium Ferric Gluconat- 100 Sucrose 125 mg In Sodium Chloride 0.9% 100 ml @ 100 mls/hr IVPB DAILY RICK Rx#:[id number] Oral 820 720 Output: Urine 800 2900 400 Other: Voiding Method Urinal # Bowel Movements 1 - Exam GENERAL EXAM: Patient is alert and oriented and appear to be in any acute distress HEENT: Normocephalic. Normal reaction of pupils, equal size, normal range of extraocular motion. No erythema or exudates in the throat. NECK: No masses, no nuchal rigidity. CHEST: No chest wall deformity. LUNGS: Diminished breath sounds HEART: S1 and S2 normal with no audible mumurs or gallops. Regular rhythm, femorals equal on both sides.. ABDOMEN: No hepatosplenomegaly, normal bowel sounds, no guarding or rigidity. SKIN: No rashes CENTRAL NERVOUS SYSTEM: No focal deficits. EXTREMITIES: Resolving edema. - Labs CBC & Chem 7: 03/10/18 05:37 03/10/18 05:37 Labs: Abnormal Lab Results - Last 24 Hours (Table) 03/09/18 03/09/18 03/09/18 Range/Units 16:12 18:06 20:52 RBC (4.30-5.90) m/uL Hgb (13.0-17.5) gm/dL Hct (39.0-53.0) % MCHC (31.0-37.0) g/dL Chloride (98-107) mmol/L BUN (9-20) mg/dL Creatinine (0.66-1.25) mg/dL Glucose (74-99) mg/dL POC Glucose (mg/dL) 198 H 177 H (75-99) mg/dL Calcium (8.4-10.2) mg/dL U Random Total Protein 126 H (<12) mg/dL 03/10/18 03/10/18 03/10/18 Range/Units 05:37 05:37 06:07 RBC 3.64 L (4.30-5.90) m/uL Hgb 9.7 L (13.0-17.5) gm/dL Hct 31.8 L (39.0-53.0) % MCHC 30.6 L (31.0-37.0) g/dL Chloride 95 L (98-107) mmol/L BUN 65 H (9-20) mg/dL Creatinine 5.73 H* (0.66-1.25) mg/dL Glucose 199 H (74-99) mg/dL POC Glucose (mg/dL) 201 H (75-99) mg/dL Calcium 7.5 L (8.4-10.2) mg/dL U Random Total Protein (<12) mg/dL 03/10/18 Range/Units 11:25 RBC (4.30-5.90) m/uL Hgb (13.0-17.5) gm/dL Hct (39.0-53.0) % MCHC (31.0-37.0) g/dL Chloride (98-107) mmol/L BUN (9-20) mg/dL Creatinine (0.66-1.25) mg/dL Glucose (74-99) mg/dL POC Glucose (mg/dL) 174 H (75-99) mg/dL Calcium (8.4-10.2) mg/dL U Random Total Protein (<12) mg/dL Assessment and Plan (1) Cardiomyopathy Current Visit: Yes Status: Acute Code(s): I42.9 - CARDIOMYOPATHY, UNSPECIFIED SNOMED Code(s): 41356162 (2) CHF (congestive heart failure) Current Visit: Yes Status: Acute Code(s): I50.9 - HEART FAILURE, UNSPECIFIED SNOMED Code(s): 17804260 (3) CKD (chronic kidney disease) Current Visit: Yes Status: Acute Code(s): N18.9 - CHRONIC KIDNEY DISEASE, UNSPECIFIED SNOMED Code(s): 644164240 Plan: Patient is feeling better. We will continue IV Lasix one more day. We'll hold entresto for now and see if there will be any improvement in the creatinine. If not, probably patient could be restarted. Increase activity as tolerated
[2018-03-10 17:11] LABS: Glucose,Whole Blood 228 mg/dL (75-99)
[2018-03-10 20:18] LABS: Glucose,Whole Blood 205 mg/dL (75-99)
[2018-03-10] MEDS: ATORVASTATIN 10 MG TAB PO SCH (20:27)
[2018-03-10] MEDS: INSULIN DETEMIR 100 UNIT/ML 10 ML VIAL SQ SCH (21:41)
[2018-03-11] MEDS: HEPARIN SODIUM,PORCINE 5,000 UNIT/ML 1 ML VIAL SQ SCH ×4 (00:12→23:15)
[2018-03-11 05:59] LABS: Glucose,Whole Blood 235 mg/dL (75-99)
[2018-03-11] MEDS: CARVEDILOL 12.5 MG TAB PO SCH ×2 (06:57→16:56)
[2018-03-11] MEDS: INSULIN ASPART 100 UNIT/ML 1 ML 10 ML VIAL SQ SCH ×7 (06:57→21:17)
[2018-03-11 07:39] LABS: Basophils % (A) 1 %; Eosinophils # (A) 0.2 k/uL (0-0.7); Eosinophils % (A) 4 %; HCT 31.3 % (39.0-53.0); HGB 9.7 gm/dL (13.0-17.5); Hypochromasia Slight; Lymphocytes # (A) 1.1 k/uL (1.0-4.8); Lymphocytes % (A) 20 %; MCV 87.1 fL (80.0-100.0); Mean Platelet Volume 7.3; Monocytes # (A) 0.7 k/uL (0-1.0); Monocytes % (A) 12 %; Neutrophils # (A) 3.5 k/uL (1.3-7.7); Neutrophils % (A) 61 %; Platelet Count 260 k/uL (150-450); RBC 3.59 m/uL (4.30-5.90); RDW 14.6 % (11.5-15.5); WBC 5.8 k/uL (3.8-10.6)
[2018-03-11 08:00] LABS: Calcium 7.6 mg/dL (8.4-10.2)
[2018-03-11] MEDS: METOLAZONE 5 MG TAB PO SCH (09:43)
[2018-03-11] MEDS: FAMOTIDINE 20 MG TAB PO SCH (09:43)
[2018-03-11] MEDS: ISOSORBIDE DINITRATE 20 MG TAB PO SCH ×2 (09:43→21:17)
[2018-03-11] MEDS: ASPIRIN 81 MG PO SCH (09:43)
[2018-03-11] MEDS: SODIUM FERRIC GLUCONAT-SUCROSE 125 MG in SODIUM CHLORIDE 0.9% 100 ML IVPB SCH (09:44)
--- NOTE | 2018-03-11 10:23 | P.PN ---
Subjective Principal diagnosis: 42-year-old male with chronic kidney disease secondary to diabetic nephropathy baseline creatinine of 3 admitted with worsening edema and shortness of breath. He is on Lasix drip, and metolazone 5 mg. His urine output is 3775 for the last 24 hours.. His creatinine has gone up from 5 on admission to 6 this morning, but his edema has improved and his shortness of breath is improved. Has a fair appetite. No dizziness. History of present illness;Patient presented to the hospital with left-sided chest discomfort which he attributes to excess fluid around his lungs. Patient states he has history of congestive heart failure and has gained about 35 pounds in the last 2-3 months. He admits that his urine output was less than usual the last few days. He was receiving IV Lasix bolus and is now on a Lasix drip at 10 mL an hour. Urine output is improved. No hematuria or dysuria. No vomiting or diarrhea. Chest discomfort has improved. He was also being treated for a right foot ulcer for which he was evaluated as an outpatient and due to drainage he was sent to the hospital for further care. He does have quite a bit of edema. Hemodynamically he is stable. He has a long-standing history of diabetes - states he was diagnosed at the age of 21. Objective - Vital Signs Vital signs: Vital Signs Temp 97.6 F 03/11/18 04:00 Pulse 82 03/11/18 04:00 Resp 18 03/11/18 04:00 BP 150/90 03/11/18 04:00 Pulse Ox 97 03/11/18 04:00 Intake & Output 03/10/18 03/11/18 03/11/18 18:59 06:59 18:59 Intake Total 1182 883 Output Total 1500 1974 Balance -318 -1092 Weight 132.6 kg Intake: IV 140 lasix 140 Intake, IV Titration 100 203 Amount Furosemide 250 mg In 203 Sodium Chloride 0.9% 225 ml @ 20 MG/HR 20 mls/hr IVP .[id number] RICK Rx#: [id number] Sodium Ferric Gluconat- 100 Sucrose 125 mg In Sodium Chloride 0.9% 100 ml @ 100 mls/hr IVPB DAILY RICK Rx#:[id number] Oral 942 680 Output: Urine 1500 1974 Other: Voiding Method Urinal Exertion is awake alert oriented HEENT exam no JVP neck is supple no facial asymmetry Lungs are clear to auscultation good air entry bilaterally Heart sounds are unremarkable no murmur rub gallop Abdomen soft nontender somewhat obese Extremity exam reveals 2-3+ edema with chronic stasis changes. Neurologically awake alert oriented - Labs CBC & Chem 7: 03/11/18 06:29 03/11/18 06:29 Labs: Abnormal Lab Results - Last 24 Hours (Table) 03/09/18 03/10/18 03/10/18 Range/Units 06:02 11:25 16:32 RBC (4.30-5.90) m/uL Hgb (13.0-17.5) gm/dL Hct (39.0-53.0) % Chloride (98-107) mmol/L BUN (9-20) mg/dL Creatinine (0.66-1.25) mg/dL Glucose (74-99) mg/dL POC Glucose (mg/dL) 174 H 228 H (75-99) mg/dL Calcium (8.4-10.2) mg/dL Free [place]armen LC, Quant 33.20 H (0.33-1.94) mg/dL Free Lambda LC, Quant 13.10 H (0.57-2.63) mg/dL 03/10/18 03/11/18 03/11/18 Range/Units 20:17 05:57 06:29 RBC (4.30-5.90) m/uL Hgb (13.0-17.5) gm/dL Hct (39.0-53.0) % Chloride 94 L (98-107) mmol/L BUN 67 H (9-20) mg/dL Creatinine 6.07 H* (0.66-1.25) mg/dL Glucose 206 H (74-99) mg/dL POC Glucose (mg/dL) 205 H 235 H (75-99) mg/dL Calcium 7.6 L (8.4-10.2) mg/dL Free [place]en LC, Quant (0.33-1.94) mg/dL Free Lambda LC, Quant (0.57-2.63) mg/dL 03/11/18 Range/Units 06:29 RBC 3.59 L (4.30-5.90) m/uL Hgb 9.7 L (13.0-17.5) gm/dL Hct 31.3 L (39.0-53.0) % Chloride (98-107) mmol/L BUN (9-20) mg/dL Creatinine (0.66-1.25) mg/dL Glucose (74-99) mg/dL POC Glucose (mg/dL) (75-99) mg/dL Calcium (8.4-10.2) mg/dL Free [place]en LC, Quant (0.33-1.94) mg/dL Free Lambda LC, Quant (0.57-2.63) mg/dL Assessment and Plan Assessment: Impression. 1. Acute kidney injury secondary to CHF and cardiorenal syndrome, creatinine went up to 6 from 5 on admission, on Lasix and metolazone with large amount of urine output 3700 for the last 2 days. His valsartan sacubitril combination was discontinued yesterday 03/10/2018 . 2. Chronic kidney disease secondary diabetic nephropathy creatinine about 3 3. Significant edema improved on Lasix. 4. Anemia with hemoglobin of 9.7, from chronic kidney disease and iron deficiency with a saturation of 10% on 03/07/2018. On Ferrlecit Plan- 1. Reduce Lasix drips 2 5 mg/h and discontinue the metolazone and an attempt to improve renal perfusion and slow down the diuresis. 2. Monitor labs. 3. On ferric gluconate 125 mg daily for 3 days started 03/08/2018. Completed course today 4. Expect renal function to improve hopefully off of the valsartan and reduced dose of Lasix.
--- NOTE | 2018-03-11 11:31 | P.PN ---
Subjective Progress Note Date: 03/10/18 Principal diagnosis: CHF exacerbation and WOLFGANG Mr. Bucio is a 42-year-old male with a past medical history of nonischemic cardiomyopathy, diabetes, hypertension, diabetic nephropathy admitted to the hospital with a chief complaint of increased swelling of his lower extremities and difficulty in breathing. He is currently being treated with IV Lasix drip. Cardiology and nephrology on board and following the patient closely. On 03/10/2018: Patient reports significant improvement in his lower extremity edema and also abdominal wall edema. His respiratory status has improved much compared to when he came in. He denies having any new complaints. Review of systems Constitutional: Denied any fatigue denied any fever. Cardio vascular: denied any chest pain, palpitations Gastrointestinal: denied any nausea vomiting Pulmonary: Respiratory status improved Neurologic denied any new focal deficits Objective - Vital Signs Vital signs: Vital Signs Temp 98.1 F 03/10/18 08:00 Pulse 83 03/10/18 08:00 Resp 17 03/10/18 08:00 BP 102/57 03/10/18 08:00 Pulse Ox 97 03/10/18 08:00 Intake & Output 03/09/18 03/10/18 03/10/18 18:59 06:59 18:59 Intake Total 920 269.25 360 Output Total 800 2900 400 Balance 120 -2630.75 -40 Weight 131.5 kg Intake: Intake, IV Titration 100 269.25 Amount Furosemide 250 mg In 269.25 Sodium Chloride 0.9% 225 ml @ 20 MG/HR 20 mls/hr IVP .[id number] RICK Rx#: [id number] Sodium Ferric Gluconat- 100 Sucrose 125 mg In Sodium Chloride 0.9% 100 ml @ 100 mls/hr IVPB DAILY RICK Rx#:[id number] Oral 820 360 Output: Urine 800 2900 400 Other: Voiding Method Urinal # Bowel Movements 1 - Exam GENERAL EXAM GENERAL: The patient is alert and oriented x3, not in any acute distress. Morbidly obese HEENT: Pupils are round and equally reacting to light. EOMI. No scleral icterus. No conjunctival pallor. Normocephalic, atraumatic. No pharyngeal erythema. No thyromegaly. CARDIOVASCULAR: S1 and S2 present. No murmurs, rubs, or gallops. Patient has elevated JVD does have S3 PULMONARY: Chest is clear to auscultation, no wheezing or crackles. ABDOMEN: Soft, nontender, nondistended, normoactive bowel sounds. Difficult to appreciate organomegaly due to huge body habitus. MUSCULOSKELETAL: No joint swelling or deformity. EXTREMITIES: No cyanosis, clubbing, significant bilateral pedal edema extending up to bilateral knee area. Patient has about 10 into 7 cm ulceration on the dorsal aspect of the right foot stage II NEUROLOGICAL: Gross neurological examination did not reveal any focal deficits. SKIN: No rashes. - Labs CBC & Chem 7: 03/10/18 05:37 03/10/18 05:37 Labs: Abnormal Lab Results - Last 24 Hours (Table) 03/09/18 03/09/18 03/09/18 Range/Units 16:12 18:06 20:52 RBC (4.30-5.90) m/uL Hgb (13.0-17.5) gm/dL Hct (39.0-53.0) % MCHC (31.0-37.0) g/dL Chloride (98-107) mmol/L BUN (9-20) mg/dL Creatinine (0.66-1.25) mg/dL Glucose (74-99) mg/dL POC Glucose (mg/dL) 198 H 177 H (75-99) mg/dL Calcium (8.4-10.2) mg/dL U Random Total Protein 126 H (<12) mg/dL 03/10/18 03/10/18 03/10/18 Range/Units 05:37 05:37 06:07 RBC 3.64 L (4.30-5.90) m/uL Hgb 9.7 L (13.0-17.5) gm/dL Hct 31.8 L (39.0-53.0) % MCHC 30.6 L (31.0-37.0) g/dL Chloride 95 L (98-107) mmol/L BUN 65 H (9-20) mg/dL Creatinine 5.73 H* (0.66-1.25) mg/dL Glucose 199 H (74-99) mg/dL POC Glucose (mg/dL) 201 H (75-99) mg/dL Calcium 7.5 L (8.4-10.2) mg/dL U Random Total Protein (<12) mg/dL 03/10/18 Range/Units 11:25 RBC (4.30-5.90) m/uL Hgb (13.0-17.5) gm/dL Hct (39.0-53.0) % MCHC (31.0-37.0) g/dL Chloride (98-107) mmol/L BUN (9-20) mg/dL Creatinine (0.66-1.25) mg/dL Glucose (74-99) mg/dL POC Glucose (mg/dL) 174 H (75-99) mg/dL Calcium (8.4-10.2) mg/dL U Random Total Protein (<12) mg/dL Assessment and Plan Assessment: -Congestive heart failure chronic systolic dysfunction nonischemic cardiomyopathy with acute exacerbation -Acute renal failure: Prerenal azotemia - Secondary to cardiorenal syndrome expected to improve with IV Lasix which is being continued at this time. -Chronic kidney disease stage IV secondary to diabetic nephropathy. -Diabetic peripheral neuropathy -Diabetic foot ulcer, local wound care - no need antibiotics as per infectious disease -Mildly elevated troponins: He appeared to be secondary to renal dysfunction -Type 2 diabetes mellitus -Hypertension -Hyperlipidemia PLAN - patient is on IV Lasix drip. Cardiac evaluated the patient- Repeat echocardiogram showed an ejection fraction of 20-25%. Repeat basic metabolic profile.Continue the current medication regimen of insulin for his type this mellitus and will his adjust it according to blood sugar levels. Patient's creatinine has been stable around 5-6. As per nephrology , it would be better to discontinue and Entresto, which will be discussed with cardiology. Continue with the rest of his medication regimen. Further recommendations to follow depending on the progress of the patient. Overall prognosis is guarded.
[2018-03-11] MEDS: FUROSEMIDE 250 MG in SODIUM CHLORIDE 0.9% 225 ML IV SCH (11:51)
--- NOTE | 2018-03-11 12:07 | P.PN ---
Subjective Progress Note Date: 03/11/18 Principal diagnosis: CHF exacerbation and WOLFGANG Mr. Bucio is a 42-year-old male with a past medical history of nonischemic cardiomyopathy, diabetes, hypertension, diabetic nephropathy admitted to the hospital with a chief complaint of increased swelling of his lower extremities and difficulty in breathing. He is currently being treated with IV Lasix drip. Cardiology and nephrology on board and following the patient closely. On 03/10/2018: Patient reports significant improvement in his lower extremity edema and also abdominal wall edema. His respiratory status has improved much compared to when he came in. He denies having any new complaints. On 03/11/18 - Pt denies any new complains. He states his lower extremity edema and abdominal wall edema improved. Review of systems Constitutional: Denied any fatigue denied any fever. Cardio vascular: denied any chest pain, palpitations Gastrointestinal: denied any nausea vomiting Pulmonary: Respiratory status improved Neurologic denied any new focal deficits Objective - Vital Signs Vital signs: Vital Signs Temp 97.9 F 03/11/18 08:00 Pulse 87 03/11/18 08:00 Resp 18 03/11/18 08:00 BP 145/95 03/11/18 08:00 Pulse Ox 99 03/11/18 08:00 Intake & Output 03/10/18 03/11/18 03/11/18 18:59 06:59 18:59 Intake Total 1182 883 360 Output Total 1500 1975 700 Balance -318 -0045 -315 Weight 132.6 kg Intake: IV 140 lasix 140 Intake, IV Titration 100 203 Amount Furosemide 250 mg In 203 Sodium Chloride 0.9% 225 ml @ 20 MG/HR 20 mls/hr IVP .[id number] RICK Rx#: [id number] Sodium Ferric Gluconat- 100 Sucrose 125 mg In Sodium Chloride 0.9% 100 ml @ 100 mls/hr IVPB DAILY RICK Rx#:[id number] Oral 942 680 360 Output: Urine 1500 1975 700 Other: Voiding Method Urinal - Exam GENERAL EXAM GENERAL: The patient is alert and oriented x3, not in any acute distress. Morbidly obese HEENT: Pupils are round and equally reacting to light. EOMI. No scleral icterus. No conjunctival pallor. Normocephalic, atraumatic. No pharyngeal erythema. No thyromegaly. CARDIOVASCULAR: S1 and S2 present. No murmurs, rubs, or gallops. Patient has elevated JVD does have S3 PULMONARY: Chest is clear to auscultation, no wheezing or crackles. ABDOMEN: Soft, nontender, nondistended, normoactive bowel sounds. Difficult to appreciate organomegaly due to huge body habitus. MUSCULOSKELETAL: No joint swelling or deformity. EXTREMITIES: No cyanosis, clubbing, significant bilateral pedal edema extending up to bilateral knee area. Patient has about 10 into 7 cm ulceration on the dorsal aspect of the right foot stage II NEUROLOGICAL: Gross neurological examination did not reveal any focal deficits. - Labs CBC & Chem 7: 03/11/18 06:29 03/11/18 06:29 Labs: Abnormal Lab Results - Last 24 Hours (Table) 03/09/18 03/10/18 03/10/18 Range/Units 06:02 11:25 16:32 RBC (4.30-5.90) m/uL Hgb (13.0-17.5) gm/dL Hct (39.0-53.0) % Chloride (98-107) mmol/L BUN (9-20) mg/dL Creatinine (0.66-1.25) mg/dL Glucose (74-99) mg/dL POC Glucose (mg/dL) 174 H 228 H (75-99) mg/dL Calcium (8.4-10.2) mg/dL Free [place] LC, Quant 33.20 H (0.33-1.94) mg/dL Free Lambda LC, Quant 13.10 H (0.57-2.63) mg/dL 03/10/18 03/11/18 03/11/18 Range/Units 20:17 05:57 06:29 RBC (4.30-5.90) m/uL Hgb (13.0-17.5) gm/dL Hct (39.0-53.0) % Chloride 94 L (98-107) mmol/L BUN 67 H (9-20) mg/dL Creatinine 6.07 H* (0.66-1.25) mg/dL Glucose 206 H (74-99) mg/dL POC Glucose (mg/dL) 205 H 235 H (75-99) mg/dL Calcium 7.6 L (8.4-10.2) mg/dL Free [place] LC, Quant (0.33-1.94) mg/dL Free Lambda LC, Quant (0.57-2.63) mg/dL 03/11/18 Range/Units 06:29 RBC 3.59 L (4.30-5.90) m/uL Hgb 9.7 L (13.0-17.5) gm/dL Hct 31.3 L (39.0-53.0) % Chloride (98-107) mmol/L BUN (9-20) mg/dL Creatinine (0.66-1.25) mg/dL Glucose (74-99) mg/dL POC Glucose (mg/dL) (75-99) mg/dL Calcium (8.4-10.2) mg/dL Free [place] LC, Quant (0.33-1.94) mg/dL Free Lambda LC, Quant (0.57-2.63) mg/dL Assessment and Plan Assessment: -Congestive heart failure chronic systolic dysfunction nonischemic cardiomyopathy with acute exacerbation -Acute renal failure: Prerenal azotemia - Secondary to cardiorenal syndrome expected to improve with IV Lasix - but increased from 5 to 6 this morning - probably due to overtdiuresis - Nephrology on board and following - to decrease the drip rate of Lasix. -Diabetic peripheral neuropathy -Diabetic foot ulcer, local wound care - no need antibiotics as per infectious disease -Mildly elevated troponins: He appeared to be secondary to renal dysfunction -Type 2 diabetes mellitus -Hypertension -Hyperlipidemia PLAN - patient is on IV Lasix drip- rate is reduced from 20 to 5 today. Cardiology evaluated the patient- Repeat echocardiogram showed an ejection fraction of 20-25%. Repeat basic metabolic profile.Continue the current medication regimen of insulin for his Diabetes mellitus and will his adjust it according to blood sugar levels. Entresto has been discontinued yesterday. Continue with the rest of his medication regimen. Further recommendations to follow depending on the progress of the patient. Overall prognosis is guarded.
[2018-03-11 12:12] LABS: Glucose,Whole Blood 163 mg/dL (75-99)
--- NOTE | 2018-03-11 15:39 | P.PN ---
Subjective Progress Note Date: 03/11/18 This is a 42-year-old gentleman with history of chronic renal failure was admitted with evidence of CHF, Edema and fluid overload. Patient is on IV Lasix and also on metolazone. Patient's creatinine has gone up. Patient is still complaining of shortness of breath but has improved compared to the admission. He still has edema. Product Marketing Intern is increase the dose of the Lasix to 20 mg. Patient is also complaining of intermittent nausea. Patient may benefit from dialysis. Prognosis is guarded. Apparently patient has declined AICD in the past. 02/28/2018: The patient seemed to be feeling better. His edema is down. He is less short of breath. His creatinine is still high. Product Marketing Intern suggested stopping Entresto. We'll stop the medication temporarily and see if there is any significant improvement in creatinine. Patient also make be constricted for dialysis. From Cardec standpoint patient seemed to be better. We'll continue the IV Lasix for another 24 hours. 03/11/2018: Patient continues to feel better. Diuresing well. However creatinine has gone up to 6. Product Marketing Intern cut back the dose of IV Lasix. We also stopped Entresto. We will follow renal functions closely. Hopefully the renal function will improve. Patient doesn't want to go on dialysis. Further recommendation depending upon clinical course Objective - Vital Signs Vital signs: Vital Signs Temp 97.9 F 03/11/18 08:00 Pulse 87 03/11/18 12:00 Resp 18 03/11/18 12:00 BP 147/72 03/11/18 12:00 Pulse Ox 95 03/11/18 12:00 Intake & Output 03/10/18 03/11/18 03/11/18 18:59 06:59 18:59 Intake Total 1182 883 360 Output Total 1500 1975 700 Balance -318 -1092 -340 Weight 132.6 kg Intake: IV 140 lasix 140 Intake, IV Titration 100 203 Amount Furosemide 250 mg In 203 Sodium Chloride 0.9% 225 ml @ 20 MG/HR 20 mls/hr IVP .[id number] [facility] Rx#: [id number] Sodium Ferric Gluconat- 100 Sucrose 125 mg In Sodium Chloride 0.9% 100 ml @ 100 mls/hr IVPB DAILY [facility] Rx#:[id number] Oral 942 680 360 Output: Urine 1500 1975 700 Other: Voiding Method Urinal - Exam GENERAL EXAM: Patient is alert and oriented and appear to be in any acute distress HEENT: Normocephalic. Normal reaction of pupils, equal size, normal range of extraocular motion. No erythema or exudates in the throat. NECK: No masses, no nuchal rigidity. CHEST: No chest wall deformity. LUNGS: Diminished breath sounds HEART: S1 and S2 normal with no audible mumurs or gallops. Regular rhythm, femorals equal on both sides.. ABDOMEN: No hepatosplenomegaly, normal bowel sounds, no guarding or rigidity. SKIN: No rashes CENTRAL NERVOUS SYSTEM: No focal deficits. EXTREMITIES: Resolving edema. - Labs CBC & Chem 7: 03/11/18 06:29 03/11/18 06:29 Labs: Abnormal Lab Results - Last 24 Hours (Table) 03/09/18 03/10/18 03/10/18 Range/Units 06:02 16:32 20:17 RBC (4.30-5.90) m/uL Hgb (13.0-17.5) gm/dL Hct (39.0-53.0) % Chloride (98-107) mmol/L BUN (9-20) mg/dL Creatinine (0.66-1.25) mg/dL Glucose (74-99) mg/dL POC Glucose (mg/dL) 228 H 205 H (75-99) mg/dL Calcium (8.4-10.2) mg/dL Free [place] LC, Quant 33.20 H (0.33-1.94) mg/dL Free [place] LC, Quant 13.10 H (0.57-2.63) mg/dL 03/11/18 03/11/18 03/11/18 Range/Units 05:57 06:29 06:29 RBC 3.59 L (4.30-5.90) m/uL Hgb 9.7 L (13.0-17.5) gm/dL Hct 31.3 L (39.0-53.0) % Chloride 94 L (98-107) mmol/L BUN 67 H (9-20) mg/dL Creatinine 6.07 H* (0.66-1.25) mg/dL Glucose 206 H (74-99) mg/dL POC Glucose (mg/dL) 235 H (75-99) mg/dL Calcium 7.6 L (8.4-10.2) mg/dL Free [place] LC, Quant (0.33-1.94) mg/dL Free [place] LC, Quant (0.57-2.63) mg/dL 03/11/18 Range/Units 11:47 RBC (4.30-5.90) m/uL Hgb (13.0-17.5) gm/dL Hct (39.0-53.0) % Chloride (98-107) mmol/L BUN (9-20) mg/dL Creatinine (0.66-1.25) mg/dL Glucose (74-99) mg/dL POC Glucose (mg/dL) 163 H (75-99) mg/dL Calcium (8.4-10.2) mg/dL Free [place] LC, Quant (0.33-1.94) mg/dL Free [place] LC, Quant (0.57-2.63) mg/dL Assessment and Plan (1) Cardiomyopathy Current Visit: Yes Status: Acute Code(s): I42.9 - CARDIOMYOPATHY, UNSPECIFIED SNOMED Code(s): 62401689 (2) CHF (congestive heart failure) Current Visit: Yes Status: Acute Code(s): I50.9 - HEART FAILURE, UNSPECIFIED SNOMED Code(s): 82432807 (3) CKD (chronic kidney disease) Current Visit: Yes Status: Acute Code(s): N18.9 - CHRONIC KIDNEY DISEASE, UNSPECIFIED SNOMED Code(s): 964346179 Plan: The dose of the Lasix drip is cut back. The rest of the medication be continued. Follow renal function closely.
[2018-03-11 17:07] LABS: Glucose,Whole Blood 122 mg/dL (75-99)
[2018-03-11 21:13] LABS: Glucose,Whole Blood 150 mg/dL (75-99)
[2018-03-11] MEDS: INSULIN DETEMIR 100 UNIT/ML 10 ML VIAL SQ SCH (21:17)
[2018-03-11] MEDS: ATORVASTATIN 10 MG TAB PO SCH (21:17)
--- NOTE | 2018-03-11 22:44 | PN ---
PROGRESS NOTE DATE OF SERVICE: 03/11/2018. REASON FOR FOLLOWUP: Right diabetic foot ulcer. INTERVAL HISTORY: The patient is afebrile, has been breathing more comfortably. Denies having any chest pain. No cough. No pain in the right foot wound area. Dressing was changed yesterday. No drainage. EXAMINATION: Blood pressure 121/80 with a pulse of 84, temperature 98. He is 93% on room air. General description is a middle-aged male lying in bed in no distress. Respiratory system: Unlabored breathing. Clear to auscultation anteriorly. Heart S1, S2. Regular rate and rhythm. Abdomen: Soft. No tenderness. Right foot currently dressed up, with no obvious drainage on the dressing. LABS: Hemoglobin 9.7, white count 5.8 with a BUN of 77, creatinine 6.07. DIAGNOSTIC IMPRESSION AND PLAN: Patient with right diabetic foot ulcer from ruptured blister. The patient did have evidence of without evidence of any cellulitis and no fever, white count. Recommend keeping the patient on local wound care with Aquacel silver dressing. No need for any systemic antibiotic therapy. MMODL / IJN: [id number] /
[2018-03-12 06:28] LABS: Glucose,Whole Blood 143 mg/dL (75-99)
[2018-03-12 06:54] LABS: Calcium 7.5 mg/dL (8.4-10.2); Potassium 3.9 mmol/L (3.5-5.1)
[2018-03-12] MEDS: INSULIN ASPART 100 UNIT/ML 1 ML 10 ML VIAL SQ SCH ×7 (06:59→21:53)
[2018-03-12] MEDS: CARVEDILOL 12.5 MG TAB PO SCH ×2 (06:59→16:29)
--- NOTE | 2018-03-12 08:36 | P.PN ---
Subjective Patient is seen in follow-up for acute kidney injury on chronic kidney disease. Patient has chronic kidney disease stage III with baseline creatinine in the range of 2.8-3.5 recently. Etiology is diabetic kidney disease and nephrosclerosis. Patient presented with CHF exacerbation and fluid overload. He is currently maintained on Lasix drip at 5 mL an hour. His creatinine was 5.37 on admission and is 6.1 today. Urine output is documented as 2.1 L in the last 24 hours. Denies hematuria or dysuria. Edema has improved. Dyspnea is improved. He is noted to have ejection fraction of 20-25% with moderate mitral and pulmonic regurgitation and moderate pulmonary hypertension. Vital signs are stable. General: The patient appeared well nourished and normally developed. HEENT: Head exam is unremarkable. Neck is without jugular venous distension. LUNGS: Breath sounds decreased. HEART: Rate and Rhythm are regular. First and second heart sounds normal. No murmurs, rubs or gallops. ABDOMEN: Abdominal exam reveals normal bowel sounds. Non-tender and non- distended. No evidence of peritonitis. EXTREMITITES: 1+ edema. Objective - Vital Signs Vital signs: Vital Signs Temp 98.0 F 03/11/18 20:00 Pulse 88 03/12/18 04:00 Resp 18 03/12/18 04:00 BP 133/94 03/12/18 04:00 Pulse Ox 97 03/12/18 04:00 Intake & Output 03/11/18 03/12/18 03/12/18 18:59 06:59 18:59 Intake Total 1200 60 480 Output Total 1300 850 Balance -100 -790 480 Weight 129.8 kg Intake: IV 60 lasix 60 Oral 1200 480 Output: Urine 1300 850 Other: Voiding Method Urinal # Voids 1 - Labs CBC & Chem 7: 03/11/18 06:29 03/12/18 06:10 Labs: Abnormal Lab Results - Last 24 Hours (Table) 03/09/18 03/11/18 03/11/18 Range/Units 06:02 11:47 16:47 Chloride (98-107) mmol/L BUN (9-20) mg/dL Creatinine (0.66-1.25) mg/dL Glucose (74-99) mg/dL POC Glucose (mg/dL) 163 H 122 H (75-99) mg/dL Calcium (8.4-10.2) mg/dL Free [place] LC, Quant 33.20 H (0.33-1.94) mg/dL Free [place] LC, Quant 13.10 H (0.57-2.63) mg/dL 03/11/18 03/12/18 03/12/18 Range/Units 21:10 06:10 06:25 Chloride 95 L (98-107) mmol/L BUN 76 H (9-20) mg/dL Creatinine 6.10 H* (0.66-1.25) mg/dL Glucose 148 H (74-99) mg/dL POC Glucose (mg/dL) 150 H 143 H (75-99) mg/dL Calcium 7.5 L (8.4-10.2) mg/dL Free [place] LC, Quant (0.33-1.94) mg/dL Free [place]ambda LC, Quant (0.57-2.63) mg/dL Assessment and Plan Plan: Assessment: 1. Nonoliguric acute kidney injury secondary to ATN secondary to cardiorenal syndrome. Creatinine 5.37 on admission - 6.1 today. No evidence of obstructive uropathy. Entresto discontinued. Serologies negative so far. 2. Chronic kidney disease stage III with creatinine in the range of 2.8-3.5 recently. Etiology is diabetic kidney disease and nephrosclerosis. 3. Systolic CHF with moderate mitral and pulmonic regurgitation and moderate pulmonary hypertension. 4. Volume overload. Improved. 5. Right foot ulcer being followed by infectious disease. 6. Anemia. Iron deficiency noted - s/p 3 doses of IV iron. 7. Hypertension with chronic kidney disease. Partially volume sensitive. Controlled. 8. Hypomagnesemia secondary to diuresis - s/p replacement. 9. Insulin-dependent diabetes mellitus. Plan: Maintain Lasix drip at 5 mL an hour. Low-salt diet and 1.5 L fluid restriction. Avoid nephrotoxic agents and hypotensive episodes. Strict I's and O's. Repeat electrolytes in the morning. Follow-up serologies. I again discussed the need for renal replacement therapy due to no improvement in his renal function. Patient still undecided. No urgency at this time.
[2018-03-12] MEDS: traMADol 50 MG TAB PO PRN (08:39)
[2018-03-12] MEDS: HEPARIN SODIUM,PORCINE 5,000 UNIT/ML 1 ML VIAL SQ SCH ×3 (08:40→23:42)
[2018-03-12] MEDS: ISOSORBIDE DINITRATE 20 MG TAB PO SCH ×2 (08:40→21:53)
[2018-03-12] MEDS: ASPIRIN 81 MG PO SCH (08:40)
[2018-03-12 09:51] VITALS: BMI 36.7
--- NOTE | 2018-03-12 11:27 | P.PN ---
Subjective Progress Note Date: 03/12/18 This is a pleasant 42-year-old gentleman with history of hypertension, diabetes, hyperlipidemia, stage IV renal failure, nonsmoker, dilated cardiomyopathy, cardiac catheterization in 2014 was performed which did not reveal any significant coronary artery disease, he presented to the hospital on this occasion with symptoms of progressively worsening shortness of breath, with associated chest pressure and heaviness, positive PND and orthopnea , positive peripheral edema, and an ulcer on his right foot which he states he' s been self treating at home. Patient also states that for the past one week he has not been putting out as much urine as usual. Chest x-ray on admission revealed CHF. Foot x-ray showed soft tissue swelling without convincing radiographic evidence of acute osteomyelitis, this was the right foot. EKG shows normal sinus rhythm with T wave inversion noted in the anterior lateral leads, similar to prior EKGs. The pressure on admission 140/80, heart rate in the 70s, 99% on room air. Blood pressure this morning 144/70 with a heart rate in the 60s, 96% on room air. White blood cell count 7.6, hemoglobin 8.5, most recent available hemoglobin in September 2017 was 11.9, platelet count 188, sodium 143, potassium 4.0, BUN 46, creatinine 5.0. Creatinine in September 2017 2.81. Troponins 0.15, 0.17, 0.18. He was noted to have abnormality in his troponin in September as well. BNP level 9710. Patient was initiated on IV Lasix in the emergency room, he has been putting out good urine since his arrival here, his weight is down from admission. At the time of my examination this morning, he continues to feel short of breath, continues to have 3+ bilateral peripheral edema. Denies any chest discomfort. Denies having any black stool or blood in his stool. 03/12/2018 Patient was seen and examined this morning, continues to diurese, weight about the same. BUN 76 and creatinine 6.1 today. Blood pressure 142/80 with a heart rate in the 90s today. Patient continues to be on IV Lasix drip per nephrology , and trust was discontinued over the weekend. Objective - Vital Signs Vital signs: Vital Signs Temp 97.4 F L 03/12/18 08:37 Pulse 93 03/12/18 08:44 Resp 20 03/12/18 08:44 BP 143/85 03/12/18 08:37 Pulse Ox 99 03/12/18 08:37 Intake & Output 03/11/18 03/12/18 03/12/18 18:59 06:59 18:59 Intake Total 1200 60 480 Output Total 1300 850 Balance -100 -790 480 Weight 129.8 kg 129.8 kg Intake: IV 60 lasix 60 Oral 1200 480 Output: Urine 1300 850 Other: Voiding Method Urinal Urinal # Voids 1 - Exam PHYSICAL EXAMINATION: HEENT: Head is atraumatic, normocephalic. Pupils equal, round. Neck is supple. There is elevated jugular venous pressure. HEART EXAMINATION: Heart S1 and S2 systolic murmur is heard. CHEST EXAMINATION: Lungs reveal diminished air entry to bilateral bases. ABDOMEN: Soft, obese, nontender. Bowel sounds are heard. No organomegaly noted. EXTREMITIES:[ 2+ peripheral pulses with 1+ evidence of peripheral edema . NEUROLOGIC patient is awake, alert and oriented -3. - Labs CBC & Chem 7: 03/11/18 06:29 03/12/18 06:10 Labs: Abnormal Lab Results - Last 24 Hours (Table) 03/11/18 03/11/18 03/11/18 Range/Units 11:47 16:47 21:10 Chloride (98-107) mmol/L BUN (9-20) mg/dL Creatinine (0.66-1.25) mg/dL Glucose (74-99) mg/dL POC Glucose (mg/dL) 163 H 122 H 150 H (75-99) mg/dL Calcium (8.4-10.2) mg/dL 03/12/18 03/12/18 Range/Units 06:10 06:25 Chloride 95 L (98-107) mmol/L BUN 76 H (9-20) mg/dL Creatinine 6.10 H* (0.66-1.25) mg/dL Glucose 148 H (74-99) mg/dL POC Glucose (mg/dL) 143 H (75-99) mg/dL Calcium 7.5 L (8.4-10.2) mg/dL Assessment and Plan Plan: Assessment and plan #1 congestive heart failure, LV function unknown #2 hypertension #3 diabetes #4 stage IV renal failure #5 anemia #6 abnormal troponins, not consistent with acute coronary syndrome, likely secondary to abnormal renal function. Patient did have cardiac catheterization in 2014 which revealed normal coronary arteries. #7 prior history of smoking Plan From cardiology's perspective, we will continue current medications, diuretics as per nephrology. Continue to monitor renal function closely. DNP note has been reviewed, I agree with a documented findings and plan of care. Patient was seen and examined.
[2018-03-12 11:49] LABS: Glucose,Whole Blood 204 mg/dL (75-99)
--- NOTE | 2018-03-12 12:33 | PN ---
PROGRESS NOTE DATE OF SERVICE: 03/12/2018 REASON FOR FOLLOWUP: Right diabetic foot ulcer. INTERVAL HISTORY: The patient is afebrile. He has been breathing comfortably. Denies any chest pain. No cough. No abdominal pain. No pain in the right foot area. PHYSICAL EXAMINATION: On examination, blood pressure 136/69 with a pulse of 85, temperature 96.6. He is 100% on room air. General description is a middle-aged male lying in bed in no distress. RESPIRATORY SYSTEM: Unlabored breathing, clear to auscultation anteriorly. HEART: S1, S2. Regular rate and rhythm. ABDOMEN: Soft, no tenderness. Right foot lateral border also has . There is some swelling, but no redness. LABS: BUN of 76, creatinine 6.10. DIAGNOSTIC IMPRESSION AND PLAN: Patient with right diabetic foot ulcer with no evidence of any cellulitis local. The wound has healed up. Recommend James wrap to keep the swelling down and discontinue the Aquacel Silver dressing. Continue supportive care. MMODL / IJN: [id number] /
[2018-03-12] MEDS: FUROSEMIDE 250 MG in SODIUM CHLORIDE 0.9% 225 ML IV SCH (12:38)
[2018-03-12 15:36] LABS: C-ANCA <1:20 Titer (<1:20); P-ANCA <1:20 Titer (<1:20)
--- NOTE | 2018-03-12 16:22 | P.PN ---
Subjective Progress Note Date: 03/12/18 Principal diagnosis: CHF exacerbation and [place]OL[place] Mr. Bucio is a 42-year-old male with a past medical history of nonischemic cardiomyopathy, diabetes, hypertension, diabetic nephropathy admitted to the hospital with a chief complaint of increased swelling of his lower extremities and difficulty in breathing. He is currently being treated with IV Lasix drip. Cardiology and nephrology on board and following the patient closely. On 03/10/2018: Patient reports significant improvement in his lower extremity edema and also abdominal wall edema. His respiratory status has improved much compared to when he came in. He denies having any new complaints. On 03/11/18 - Pt denies any new complains. He states his lower extremity edema and abdominal wall edema improved. On 03/12/2018- patient complains of some throat discomfort, no dysphagia. He complains that his right ear feels clogged up. No fever or no ear pain. Patient is still on IV Lasix drip. Creatinine stable. Review of systems Constitutional: Denied any fatigue denied any fever. Cardio vascular: denied any chest pain, palpitations Gastrointestinal: denied any nausea vomiting Pulmonary: Respiratory status improved Neurologic denied any new focal deficits Objective - Vital Signs Vital signs: Vital Signs Temp 96.6 F L 03/12/18 11:42 Pulse 85 03/12/18 15:10 Resp 18 03/12/18 15:10 BP 136/69 03/12/18 11:42 Pulse Ox 100 03/12/18 11:42 Intake & Output 03/11/18 03/12/18 03/12/18 18:59 06:59 18:59 Intake Total 1200 60 1305.917 Output Total 1300 850 Balance -100 -790 1305.917 Weight 129.8 kg 129.8 kg Intake: IV 60 120 .9 @ 10 120 lasix 60 Intake, IV Titration 123.917 Amount Furosemide 250 mg In 123.917 Sodium Chloride 0.9% 225 ml @ 5 MG/HR 5 mls/hr IV .Q24H [facility] Rx#:[id number] Oral 1200 1062 Output: Urine 1300 850 Other: Voiding Method Urinal Urinal # Voids 1 - Exam GENERAL EXAM GENERAL: The patient is alert and oriented x3, not in any acute distress. Morbidly obese HEENT: Pupils are round and equally reacting to light. EOMI. No scleral icterus. No conjunctival pallor. Normocephalic, atraumatic. Examination of the oral cavity- No pharyngeal erythema. Mild tonsillar hyperemia. CARDIOVASCULAR: S1 and S2 present. No murmurs, rubs, or gallops. Patient has elevated JVD does have S3 PULMONARY: Chest is clear to auscultation, no wheezing or crackles. ABDOMEN: Soft, nontender, nondistended, normoactive bowel sounds. Difficult to appreciate organomegaly due to huge body habitus. MUSCULOSKELETAL: No joint swelling or deformity. EXTREMITIES: No cyanosis, clubbing, significant bilateral pedal edema extending up to bilateral knee area. Patient has about 10 into 7 cm ulceration on the dorsal aspect of the right foot stage II NEUROLOGICAL: Gross neurological examination did not reveal any focal deficits. - Labs CBC & Chem 7: 03/11/18 06:29 03/12/18 06:10 Labs: Abnormal Lab Results - Last 24 Hours (Table) 03/11/18 03/11/18 03/12/18 Range/Units 16:47 21:10 06:10 Chloride 95 L (98-107) mmol/L BUN 76 H (9-20) mg/dL Creatinine 6.10 H* (0.66-1.25) mg/dL Glucose 148 H (74-99) mg/dL POC Glucose (mg/dL) 122 H 150 H (75-99) mg/dL Calcium 7.5 L (8.4-10.2) mg/dL 03/12/18 03/12/18 Range/Units 06:25 11:38 Chloride (98-107) mmol/L BUN (9-20) mg/dL Creatinine (0.66-1.25) mg/dL Glucose (74-99) mg/dL POC Glucose (mg/dL) 143 H 204 H (75-99) mg/dL Calcium (8.4-10.2) mg/dL Assessment and Plan Assessment: -Congestive heart failure chronic systolic dysfunction nonischemic cardiomyopathy with acute exacerbation -Acute renal failure: Prerenal azotemia - Secondary to cardiorenal syndrome expected to improve with IV Lasix - but increased from 5 to 6 this morning - probably due to overtdiuresis - Nephrology on board and following - to decrease the drip rate of Lasix. -Diabetic peripheral neuropathy -Diabetic foot ulcer, local wound care - no need antibiotics as per infectious disease -Mildly elevated troponins: He appeared to be secondary to renal dysfunction -Type 2 diabetes mellitus -Hypertension -Hyperlipidemia PLAN - patient is on IV Lasix drip- rate is reduced from 20 to 5 yesterday. Cardiology evaluated the patient- Repeat echocardiogram showed an ejection fraction of 20-25%. Repeat basic metabolic profile.Continue the current medication regimen of insulin for his Diabetes mellitus and will his adjust it according to blood sugar levels. Entresto has been discontinued couple of days back. Continue with the rest of his medication regimen. Further recommendations to follow depending on the progress of the patient. Overall prognosis is guarded.
[2018-03-12 16:39] LABS: Glucose,Whole Blood 173 mg/dL (75-99)
[2018-03-12] MEDS: LORATADINE 10 MG TAB PO SCH (17:01)
[2018-03-12 20:38] LABS: Glucose,Whole Blood 190 mg/dL (75-99)
[2018-03-12] MEDS: ATORVASTATIN 10 MG TAB PO SCH (21:53)
[2018-03-12] MEDS: INSULIN DETEMIR 100 UNIT/ML 10 ML VIAL SQ SCH (21:53)
[2018-03-13] MEDS: CARVEDILOL 12.5 MG TAB PO SCH ×2 (06:03→17:36)
[2018-03-13 06:05] LABS: Glucose,Whole Blood 192 mg/dL (75-99)
[2018-03-13] MEDS: traMADol 50 MG TAB PO PRN (06:21)
[2018-03-13] MEDS: INSULIN ASPART 100 UNIT/ML 1 ML 10 ML VIAL SQ SCH ×6 (06:57→17:37)
[2018-03-13 07:37] LABS: Calcium 7.7 mg/dL (8.4-10.2); Potassium 4.3 mmol/L (3.5-5.1)
[2018-03-13 07:55] VITALS: TEMP 97.5
[2018-03-13] MEDS: HEPARIN SODIUM,PORCINE 5,000 UNIT/ML 1 ML VIAL SQ SCH ×2 (07:56→17:33)
[2018-03-13] MEDS: ASPIRIN 81 MG PO SCH (07:56)
[2018-03-13] MEDS: LORATADINE 10 MG TAB PO SCH (07:57)
[2018-03-13] MEDS: ISOSORBIDE DINITRATE 20 MG TAB PO SCH (07:57)
--- NOTE | 2018-03-13 08:48 | P.PN ---
Subjective Patient is seen in follow-up for acute kidney injury on chronic kidney disease. Patient has chronic kidney disease stage III with baseline creatinine in the range of 2.8-3.5 recently. Etiology is diabetic kidney disease and nephrosclerosis. Patient presented with CHF exacerbation and fluid overload. He is currently maintained on Lasix drip at 5 mL an hour. His creatinine was 5.37 on admission and is 6.33 today. Urine output is documented as 2.1 L in the last 24 hours. Denies hematuria or dysuria. Edema has improved. Dyspnea is improved. He is noted to have ejection fraction of 20-25% with moderate mitral and pulmonic regurgitation and moderate pulmonary hypertension. Vital signs are stable. General: The patient appeared well nourished and normally developed. HEENT: Head exam is unremarkable. Neck is without jugular venous distension. LUNGS: Breath sounds decreased. HEART: Rate and Rhythm are regular. First and second heart sounds normal. No murmurs, rubs or gallops. ABDOMEN: Abdominal exam reveals normal bowel sounds. Non-tender and non- distended. No evidence of peritonitis. EXTREMITITES: 1+ edema. Objective - Vital Signs Vital signs: Vital Signs Temp 97.5 F L 03/13/18 07:54 Pulse 87 03/13/18 08:00 Resp 17 03/13/18 08:00 BP 166/85 03/13/18 07:54 Pulse Ox 100 03/13/18 07:54 Intake & Output 03/12/18 03/13/18 03/13/18 18:59 06:59 18:59 Intake Total 1665.917 665 236 Output Total 800 Balance 1665.917 -135 236 Weight 129.8 kg 123.3 kg Intake: IV 120 165 .9 @ 10 120 110 lasix 55 Intake, IV Titration 123.917 Amount Furosemide 250 mg In 123.917 Sodium Chloride 0.9% 225 ml @ 5 MG/HR 5 mls/hr IV .Q24H [facility] Rx#:[id number] Oral 1422 500 236 Output: Urine 800 Other: Voiding Method Urinal Urinal Urinal - Labs CBC & Chem 7: 03/11/18 06:29 03/13/18 06:17 Labs: Abnormal Lab Results - Last 24 Hours (Table) 03/12/18 03/12/18 03/12/18 Range/Units 11:38 16:28 20:36 Chloride (98-107) mmol/L BUN (9-20) mg/dL Creatinine (0.66-1.25) mg/dL Glucose (74-99) mg/dL POC Glucose (mg/dL) 204 H 173 H 190 H (75-99) mg/dL Calcium (8.4-10.2) mg/dL 03/13/18 03/13/18 Range/Units 06:04 06:17 Chloride 93 L (98-107) mmol/L BUN 83 H* (9-20) mg/dL Creatinine 6.33 H* (0.66-1.25) mg/dL Glucose 188 H (74-99) mg/dL POC Glucose (mg/dL) 192 H (75-99) mg/dL Calcium 7.7 L (8.4-10.2) mg/dL Assessment and Plan Plan: Assessment: 1. Nonoliguric acute kidney injury secondary to ATN secondary to cardiorenal syndrome. Creatinine 5.37 on admission - 6.33 today. No evidence of obstructive uropathy. Entresto discontinued. Serologies negative. 2. Chronic kidney disease stage III with creatinine in the range of 2.8-3.5 recently. Etiology is diabetic kidney disease and nephrosclerosis. 3. Systolic CHF with moderate mitral and pulmonic regurgitation and moderate pulmonary hypertension. 4. Volume overload. Improved. 5. Right foot ulcer being followed by infectious disease. 6. Anemia. Iron deficiency noted - s/p 3 doses of IV iron. 7. Hypertension with chronic kidney disease. Partially volume sensitive. Controlled. 8. Hypomagnesemia secondary to diuresis - s/p replacement. 9. Insulin-dependent diabetes mellitus. Plan: Discontinue Lasix drip. Start Lasix 60 mg orally twice daily. Low-salt diet and 1.5 L fluid restriction. Avoid nephrotoxic agents and hypotensive episodes. Strict I's and O's. Repeat electrolytes in the morning. I again discussed the need for renal replacement therapy due to no improvement in his renal function. Patient is refusing renal replacement therapy at this time. No signs of uremia at this time.
[2018-03-13] MEDS: FUROSEMIDE 20 MG TAB PO SCH ×2 (10:25→15:49)
[2018-03-13 11:27] VITALS: BP 145/94; PULSE 80; RESP 16
[2018-03-13 11:37] LABS: Glucose,Whole Blood 228 mg/dL (75-99)
--- NOTE | 2018-03-13 15:10 | P.PN ---
Subjective Progress Note Date: 03/13/18 This is a pleasant 42-year-old gentleman with history of hypertension, diabetes, hyperlipidemia, stage IV renal failure, nonsmoker, dilated cardiomyopathy, cardiac catheterization in 2014 was performed which did not reveal any significant coronary artery disease, he presented to the hospital on this occasion with symptoms of progressively worsening shortness of breath, with associated chest pressure and heaviness, positive PND and orthopnea , positive peripheral edema, and an ulcer on his right foot which he states he' s been self treating at home. Patient also states that for the past one week he has not been putting out as much urine as usual. Chest x-ray on admission revealed CHF. Foot x-ray showed soft tissue swelling without convincing radiographic evidence of acute osteomyelitis, this was the right foot. EKG shows normal sinus rhythm with T wave inversion noted in the anterior lateral leads, similar to prior EKGs. The pressure on admission 140/80, heart rate in the 70s, 99% on room air. Blood pressure this morning 144/70 with a heart rate in the 60s, 96% on room air. White blood cell count 7.6, hemoglobin 8.5, most recent available hemoglobin in September 2017 was 11.9, platelet count 188, sodium 143, potassium 4.0, BUN 46, creatinine 5.0. Creatinine in September 2017 2.81. Troponins 0.15, 0.17, 0.18. He was noted to have abnormality in his troponin in September as well. BNP level 9710. Patient was initiated on IV Lasix in the emergency room, he has been putting out good urine since his arrival here, his weight is down from admission. At the time of my examination this morning, he continues to feel short of breath, continues to have 3+ bilateral peripheral edema. Denies any chest discomfort. Denies having any black stool or blood in his stool. 03/12/2018 Patient was seen and examined this morning, continues to diurese, weight about the same. BUN 76 and creatinine 6.1 today. Blood pressure 142/80 with a heart rate in the 90s today. Patient continues to be on IV Lasix drip per nephrology , and trust was discontinued over the weekend. 03/13/2018 Patient seen and examined this morning, continued diuresis through the night last night, creatinine today is up to 6.3 being made for the patient to be discharged home today, he continues to refuse dialysis. I did have a conversation with Dr. George regarding reinitiating Entresto, his recommendation was to hold off on Entresto at this point. Patient continues to have some swelling, states overall he is feeling okay. Objective - Vital Signs Vital signs: Vital Signs Temp 97.5 F L 03/13/18 07:54 Pulse 80 03/13/18 11:26 Resp 16 03/13/18 11:26 BP 145/94 03/13/18 11:26 Pulse Ox 99 03/13/18 11:26 Intake & Output 03/12/18 03/13/18 03/13/18 18:59 06:59 18:59 Intake Total 1665.917 665 236 Output Total 800 Balance 1665.917 -135 236 Weight 129.8 kg 123.3 kg Intake: IV 120 165 .9 @ 10 120 110 lasix 55 Intake, IV Titration 123.917 Amount Furosemide 250 mg In 123.917 Sodium Chloride 0.9% 225 ml @ 5 MG/HR 5 mls/hr IV .Q24H RICK Rx#:[id number] Oral 1422 500 236 Output: Urine 800 Other: Voiding Method Urinal Urinal Urinal # Voids 1 - Exam PHYSICAL EXAMINATION: HEENT: Head is atraumatic, normocephalic. Pupils equal, round. Neck is supple. There is elevated jugular venous pressure. HEART EXAMINATION: Heart S1 and S2 systolic murmur is heard. CHEST EXAMINATION: Lungs reveal diminished air entry to bilateral bases. ABDOMEN: Soft, obese, nontender. Bowel sounds are heard. No organomegaly noted. EXTREMITIES:[ 2+ peripheral pulses with 1+ evidence of peripheral edema . NEUROLOGIC patient is awake, alert and oriented -3. - Labs CBC & Chem 7: 03/11/18 06:29 03/13/18 06:17 Labs: Abnormal Lab Results - Last 24 Hours (Table) 03/12/18 03/12/18 03/13/18 Range/Units 16:28 20:36 06:04 Chloride (98-107) mmol/L BUN (9-20) mg/dL Creatinine (0.66-1.25) mg/dL Glucose (74-99) mg/dL POC Glucose (mg/dL) 173 H 190 H 192 H (75-99) mg/dL Calcium (8.4-10.2) mg/dL 03/13/18 03/13/18 Range/Units 06:17 11:35 Chloride 93 L (98-107) mmol/L BUN 83 H* (9-20) mg/dL Creatinine 6.33 H* (0.66-1.25) mg/dL Glucose 188 H (74-99) mg/dL POC Glucose (mg/dL) 228 H (75-99) mg/dL Calcium 7.7 L (8.4-10.2) mg/dL Assessment and Plan Plan: Assessment and plan #1 congestive heart failure, LV function unknown #2 hypertension #3 diabetes #4 stage IV renal failure #5 anemia #6 abnormal troponins, not consistent with acute coronary syndrome, likely secondary to abnormal renal function. Patient did have cardiac catheterization in 2014 which revealed normal coronary arteries. #7 prior history of smoking Plan From cardiology's perspective, patient may be able to be discharged home as he is cleared by primary a nephrology. We will make him a follow-up appointment to see Dr. VC Crowell in the office post discharge. DNP note has been reviewed, I agree with a documented findings and plan of care. Patient was seen and examined.
--- NOTE | 2018-03-13 15:22 | P.DS ---
Providers Date of admission: 03/06/18 18:18 Attending physician: Shawna Hamilton Consults: 03/06/18 18:18 Consult Physician Routine Consulting Provider: Kerri Flores Consult Reason/Comments: foot ulcer Do you want consulting provider notified?: Yes Consult Physician Urgent Consulting Provider: Calvin Alexandre Consult Reason/Comments: nstemi, chf Do you want consulting provider notified?: Yes Consult Physician Urgent Consulting Provider: Yolanda Handy Consult Reason/Comments: Renal failure Do you want consulting provider notified?: Yes Primary care physician: [facility] Hospital Course: 42-year-old male with a past medical history of nonischemic cardiomyopathy, diabetes, hypertension, diabetic nephropathy admitted to the hospital with a chief complaint of increased swelling of his lower extremities and difficulty in breathing. He is currently being treated with IV Lasix drip. Cardiology and nephrology on board and following the patient closely. On 03/10/2018: Patient reports significant improvement in his lower extremity edema and also abdominal wall edema. His respiratory status has improved much compared to when he came in. He denies having any new complaints. On 03/11/18 - Pt denies any new complains. He states his lower extremity edema and abdominal wall edema improved. On 03/12/2018- patient complains of some throat discomfort, no dysphagia. He complains that his right ear feels clogged up. No fever or no ear pain. Patient is still on IV Lasix drip. Creatinine stable. 03/13/2018 Patient is clinically doing well he declined AICD or hemodialysis. Patient will be discharged on 60 mg twice a day of oral Lasix as recommended by nephrology and nephrology is not recommending entresto at this time. Patient cannot be on ARISTEO inhibitor because of his worsening renal function. Exam GENERAL EXAM GENERAL: The patient is alert and oriented x3, not in any acute distress. Morbidly obese HEENT: Pupils are round and equally reacting to light. EOMI. No scleral icterus. No conjunctival pallor. Normocephalic, atraumatic. Examination of the oral cavity- No pharyngeal erythema. Mild tonsillar hyperemia. CARDIOVASCULAR: S1 and S2 present. No murmurs, rubs, or gallops. Patient has elevated JVD does have S3 PULMONARY: Chest is clear to auscultation, no wheezing or crackles. ABDOMEN: Soft, nontender, nondistended, normoactive bowel sounds. Difficult to appreciate organomegaly due to huge body habitus. MUSCULOSKELETAL: No joint swelling or deformity. EXTREMITIES: No cyanosis, clubbing, significant bilateral pedal edema extending up to bilateral knee area. Patient has about 10 into 7 cm ulceration on the dorsal aspect of the right foot stage II NEUROLOGICAL: Gross neurological examination did not reveal any focal deficits. Assessment and Plan Assessment: -Congestive heart failure chronic systolic dysfunction nonischemic cardiomyopathy with acute exacerbation -Acute renal failure: Prerenal azotemia - Secondary to cardiorenal syndrome -Diabetic peripheral neuropathy -Diabetic foot ulcer, local wound care - no need antibiotics as per infectious disease -Mildly elevated troponins: He appeared to be secondary to renal dysfunction -Type 2 diabetes mellitus -Hypertension -Hyperlipidemia Patient Condition at Discharge: Serious Plan - Discharge Summary Discharge Rx Participant: Yes New Discharge Prescriptions: New Furosemide [Lasix] 60 mg PO BID@0900,1600 #60 tab Nitroglycerin Sl Tabs [Nitrostat] 0.4 mg SUBLINGUAL Q5M PRN #30 tab PRN Reason: Chest Pain Continue Carvedilol [Coreg*] 12.5 mg PO BID Atorvastatin [Lipitor] 10 mg PO HS Isosorbide Dinitrate [Isordil] 20 mg PO BID Gabapentin [Neurontin] 100 mg PO TID PRN PRN Reason: Pain Insulin Detemir [Levemir Flextouch] 20 unit SQ HS Ergocalciferol [Vitamin D2 (DRISDOL)] 50,000 unit PO Q14D Ranitidine HCl [Zantac] 300 mg PO DAILY Insulin Aspart [NovoLOG (formulary)] 15 unit SQ AC-TID Discontinued Furosemide [Lasix] 40 mg PO DAILY Sacubitril/Valsartan [Entresto 49 mg-51 mg Tablet] 1 tab PO BID Discharge Medication List Atorvastatin [Lipitor] 10 mg PO HS 09/24/17 [History] Carvedilol [Coreg*] 12.5 mg PO BID 09/24/17 [History] Ergocalciferol [Vitamin D2 (DRISDOL)] 50,000 unit PO Q14D 09/24/17 [History] Gabapentin [Neurontin] 100 mg PO TID PRN 09/24/17 [History] Insulin Detemir [Levemir Flextouch] 20 unit SQ HS 09/24/17 [History] Isosorbide Dinitrate [Isordil] 20 mg PO BID 09/24/17 [History] Insulin Aspart [NovoLOG (formulary)] 15 unit SQ AC-TID 03/06/18 [History] Ranitidine HCl [Zantac] 300 mg PO DAILY 03/06/18 [History] Furosemide [Lasix] 60 mg PO BID@0900,1600 #60 tab 03/13/18 [Rx] Nitroglycerin Sl Tabs [Nitrostat] 0.4 mg SUBLINGUAL Q5M PRN #30 tab 03/13/18 [Rx ] Follow up Appointment(s)/Referral(s): [facility], [NON-STAFF] - Judith Rico MD [Primary Care Provider] - 3 Days David George DO [STAFF PHYSICIAN] - 03/20/18 12:20 pm Shelia Crowell MD [STAFF PHYSICIAN] - 03/29/18 3:30 pm Discharge Disposition: HOME WITH HOME HEALTH SERVICES
[2018-03-13 16:58] LABS: Glucose,Whole Blood 165 mg/dL (75-99)
== END 2018-03-13 18:00 | disposition home health service (06) | DRG 291 ==
LOC: EC 16:19 → 6SEL 18:18
PROVIDERS: ADMIT Internal Medicine; ATTEND Internal Medicine
DX: I13.0 Hypertensive heart and chronic kidney disease with heart failure and stage 1 through stage 4 chronic kidney disease, or unspecified chronic kidney disease (principal); I50.23 Acute on chronic systolic (congestive) heart failure; N17.0 Acute kidney failure with tubular necrosis; N18.4 Chronic kidney disease, stage 4 (severe); E11.21 Type 2 diabetes mellitus with diabetic nephropathy; E11.42 Type 2 diabetes mellitus with diabetic polyneuropathy; I27.20 Pulmonary hypertension, unspecified; E11.40 Type 2 diabetes mellitus with diabetic neuropathy, unspecified; E11.621 Type 2 diabetes mellitus with foot ulcer; E11.22 Type 2 diabetes mellitus with diabetic chronic kidney disease; E66.01 Morbid (severe) obesity due to excess calories; L97.511 Non-pressure chronic ulcer of other part of right foot limited to breakdown of skin; E83.42 Hypomagnesemia; I42.0 Dilated cardiomyopathy; Z68.34 Body mass index [BMI] 34.0-34.9, adult; D63.1 Anemia in chronic kidney disease; T50.2X5A Adverse effect of carbonic-anhydrase inhibitors, benzothiadiazides and other diuretics, initial encounter; I37.1 Nonrheumatic pulmonary valve insufficiency; I34.0 Nonrheumatic mitral (valve) insufficiency; D50.9 Iron deficiency anemia, unspecified; E78.5 Hyperlipidemia, unspecified; R77.9 Abnormality of plasma protein, unspecified; Z79.4 Long term (current) use of insulin; Z71.3 Dietary counseling and surveillance; Z79.899 Other long term (current) drug therapy; Z95.5 Presence of coronary angioplasty implant and graft; Z88.6 Allergy status to analgesic agent; Z87.891 Personal history of nicotine dependence; Z80.3 Family history of malignant neoplasm of breast; Z83.3 Family history of diabetes mellitus; Z82.49 Family history of ischemic heart disease and other diseases of the circulatory system; Z84.1 Family history of disorders of kidney and ureter
CPT/HCPCS: 36415; 71046; 76770; 80048; 80053; 80061; 80074; 81001; 82550; 82553; 82570; 82728; 83036; 83540; 83550; 83735; 83880; 83883; 84156; 84484; 85025; 85049; 85610; 85730; 86038; 86160; 86162; 86225; 86255; 93005; 93306; 94760; 96365; 96376; 99291